=== PATIENT | male | born 1950 | race Caucasian/White ===

== ENCOUNTER 2018-03-03 08:15 | Outpatient (RCR) | payer MEDICARE, OTHER, SELFPAY ==
--- NOTE | 2018-01-15 13:34 | PT.OIE ---
Current Diagnoses Pain in right knee (01/14/18) Pain in left knee (01/14/18) Past Surgical History History of tonsillectomy Status post appendectomy Provider Visit Care Team Role Provider Type Phi Carroll MD Family Provider Physician Primary Care Provider Specialty: Family Practice Address: [address] [place] [address], [id number] Email: NAYELI Interiano Attending Provider Non-Staff Specialty: Medical Address: [address] [place] [address], [id number] Email: Physical Therapy Initial Evaluation PT-OP-A Visit Information Start: 01/14/18 08:06 Freq: Status: Active Protocol: Document 01/14/18 08:07 EA (Rec: 01/14/18 08:16 EA [id number]) Out-Patient Physical Therapy Visit Information Visit Information Visit Type Initial Evaluation Visit Start Time 07:35 Visit Stop Time 08:10 Total Visit Minutes 35 Visit Number 1 Evaluation Information Evaluation Date 01/14/18 PT-OP-B Current Condition Start: 01/14/18 08:06 Freq: Status: Active Protocol: Document 01/14/18 08:07 EA (Rec: 01/14/18 08:16 EA [id number]) Current Condition History of Current Condition Onset Date 6 months ago Current Complaints Both knee pain L>R History of Current Condition Presenting chronic knee pain with history knee twisting injury while playing golf 10 years ago with no major tear. Pain is minimal throughout 10 years and started to aggravated this last summer after playing golf. No diagnostic imaging taken recently. Prior Treatments and Tests 6 wks ago: Stem Cell treatment to both knees 3 wks platelets knee treatment and last would be tomorrow from today's date. Future Testing and Treatments Planned 01/15/18: Platelets knee treatment to both knees. Treatment Goals Patient/Caregiver Goals I want my knees to strengthen again to prevent further knee pain. Prior Functional Status Baseline Function- ADL's Independent Baseline Function- Mobility Independent Baseline Function- Recreation/Hobbies No limitation golf activities due to pain after the game. Current Functional Impairments (Reported) Functional Limitations- ADL's Independent Functional Limitations- Mobility/Gait Indep with no AD with unlimited distance Functional Limitations- Recreation/ Limited golf activity (swing Hobbies phase) due to increase in knee pain Personal Factors Other Personal Factors That May Effect Chronicity of the condition Therapy/Recovery PT-OP-C Subjective Start: 01/14/18 08:06 Freq: Status: Active Protocol: Document 01/14/18 08:16 EA (Rec: 01/14/18 13:35 EA [id number]) OP-PT Subjective Patient Comments Patient Comments Patient wants to eliminate pain to both knee and be able to perform golf activities without increase in symptoms. Patient also wants to strengthen both knee to prevent knee deterioration Patient Reported Progress Improving Patient Questionnaires Lower Extremity Functional Scale LEFS Score 62 LEFS Impairment 20 to 39% Impaired (Score 48- 62) OP-PT Pain Assessment Location Bilateral Anterior Knee Scale Used Numeric (1 - 10) Description Aching Dull Frequency Intermittent Pain Aggravating Factors Activity Walking Bending Pain Alleviating Factors Inactivity Patient Stated Pain Goal 0 Home Pain Medication Use Pain Medications Used No Pain Behaviors Pain Behaviors Wincing Comments Pain Comments Intermittent pain that frequently increase with stairs. PT-OP-F Manual Assessment Start: 01/14/18 08:06 Freq: Status: Active Protocol: Document 01/14/18 08:16 EA (Rec: 01/14/18 13:35 EA [id number]) Manual Assessments Soft Tissue Assessment Soft Tissue Mobility Assessment Tight bilateral quads. Joint Mobility Assessment Joint Mobility Assessment Hypo mobility toward medial glide of left patella Other Manual Assessments Other Manual Assessments Crepitus noted to both knees PT-OP-G Mobility & Gait Start: 01/14/18 08:06 Freq: Status: Active Protocol: Document 01/14/18 08:16 EA (Rec: 01/14/18 13:35 EA [id number]) OP Gait Assessment Gait Gait Assistance Required: Independent Able to Maintain Weight Bearing Status Yes During Gait Assistive Devices Assistive Device None Gait Deviations General Gait Pattern Antalgic Factors Limiting Gait Function Factors Limiting Gait Function Pain PT-OP-J Posture/Palpation/Skin Start: 01/14/18 08:06 Freq: Status: Active Protocol: Document 01/14/18 08:16 EA (Rec: 01/14/18 13:35 EA [id number]) Posture Evaluation Position Standing Knee Posture (R) Ext. Tibial Torsion Patellar Posture (L) Laterally Tilted PT-OP-K Range of Motion Start: 01/14/18 08:06 Freq: Status: Active Protocol: Document 01/14/18 08:16 EA (Rec: 01/14/18 13:35 EA [id number]) Knee Goniometric Range of Motion Knee Measured in Degrees Right Knee ROM WFL Yes Left Knee ROM WFL Yes PT-OP-L Special Tests Start: 01/14/18 08:06 Freq: Status: Active Protocol: Document 01/14/18 08:16 EA (Rec: 01/14/18 13:35 EA [id number]) Special Tests Knee Special Tests Apley's Compression Test Results Neg Eliseo's Sign Test Results Both + Melissa's Test Test Results + Negin's Test Test Results both tight PT-OP-M Strength Start: 01/14/18 08:06 Freq: Status: Active Protocol: Document 01/14/18 08:16 EA (Rec: 01/14/18 13:35 EA [id number]) Knee Strength Knee Manual Muscle Testing Right Flexion (S2) 5 Normal Extension (L3) 5 Normal Left Flexion (S2) 4 Good Extension (L3) 4 Good PT-OP-Q Treatments Start: 01/14/18 08:06 Freq: Status: Active Protocol: Document 01/14/18 08:16 EA (Rec: 01/14/18 13:36 EA [id number]) Self-Care/Home Management Treatment Education Patient Education Home Exercise Program Joint Protection Pain Management PT-OP-T Assessment and Plan Start: 01/14/18 08:06 Freq: Status: Active Protocol: Document 01/14/18 08:16 EA (Rec: 01/14/18 08:17 EA [id number]) Physical Therapy Assessment Rehab Potential Rehabilitation Potential Good Evaluation Complexity Number of Personal Factors/Comorbidities 0 Number of Body Systems Impaired 1-2 Clinical Presentation at Evaluation Stable Impairments Impairments Gait Pain Soft Tissue Mobility Strength Other Concerns Barriers to Rehabilitation Chronicity of the condition Goals Three Impairment Stairs descent difficulty Mascara Molder Goal (LTG) Patient will have no difficulty in descending to 8 stairs LTG Duration 4 wks One Impairment Bilateral quads tightness Mascara Molder Goal (LTG) Patient paul have full excursion both quads in prone position to improve patellar tracking LTG Duration 4 wks Two Impairment LEFS score of 68/80 Mascara Molder Goal (LTG) Patient will have LEFS score of 73 LTG Duration 4 wks Assessment Summary Assessment Pleasant 67 y/o M patient presented today with full squat and stair difficulty due to anterior knee pain. Palpation and tests reveals consistent with patellofemoral joint pain. Ocular inspection reveals left patella is laterally position in standing , dissue atrophy of quads and right foot increase toe out. No noted any signs of acute inflammation. Due to above issues, patient have difficulty performing sports he like which is golfing and as well deep stairs navigation . In my professional opinion, patient would benefit with skilled PT to improve patellar tracking and as well decrease knee symptoms. Physical Therapy Plan Frequency and Duration Frequency of Treatment 2x/Week Duration of Treatment 8 wks Plan of Care Start Date 01/14/18 Plan of Care End Date 03/11/18 Therapeutic Interventions Therapeutic Interventions Gait Training Home Exercise Program Joint Mobilizations Manual Therapy Patient/Caregiver Education Self-Care/Home Management Soft Tissue Mobilization Therapeutic Activities Therapeutic Exercises Modalities Cold Pack/Ice Massage Electric Stimulation Ultrasound Next Visit Focus/Plan Next Note Type Treatment Note Next Visit Plan HEP
--- NOTE | 2018-01-15 13:34 | PT.OPPOC ---
Current Diagnoses Pain in right knee (01/14/18) Pain in left knee (01/14/18) Provider Visit Care Team Role Provider Type Phi Carroll MD Family Provider Physician Primary Care Provider Specialty: Family Practice Address: [address] [place] [address], [phone] Email: NAYELI Interiano Attending Provider Non-Staff Specialty: Medical Address: [address] [place] [address], [address] Email: Plan Of Care PT-OP-T Assessment and Plan Start: 01/14/18 08:06 Freq: Status: Active Protocol: Document 01/14/18 08:16 RUDI (Rec: 01/14/18 08:17 RUDI [id number]) Physical Therapy Assessment Rehab Potential Rehabilitation Potential Good Evaluation Complexity Number of Personal Factors/Comorbidities 0 Number of Body Systems Impaired 1-2 Clinical Presentation at Evaluation Stable Impairments Impairments Gait Pain Soft Tissue Mobility Strength Other Concerns Barriers to Rehabilitation Chronicity of the condition Goals Three Impairment Stairs descent difficulty Fpc Goal (LTG) Patient will have no difficulty in descending to 8 stairs LTG Duration 4 wks One Impairment Bilateral quads tightness Medical Physics Professor Goal (LTG) Patient will have full excursion both quads in prone position to improve patellar tracking LTG Duration 4 wks Two Impairment LEFS score of 68/80 Fpc Goal (LTG) Patient will have LEFS score of 73 LTG Duration 4 wks Assessment Summary Assessment Pleasant 67 y/o M patient presented today with full squat and stair difficulty due to anterior knee pain. Palpation and tests reveals consistent with patellofemoral joint pain. Ocular inspection reveals left patella is laterally position in standing , disuse atrophy of quads and right foot increase toe out. No noted any signs of acute inflammation. Due to above issues, patient have difficulty performing sports he like which is golfing and as well deep stairs navigation . In my professional opinion, patient would benefit with skilled PT to improve patellar tracking and as well decrease knee symptoms. Physical Therapy Plan Frequency and Duration Frequency of Treatment 2x/Week Duration of Treatment 8 wks Plan of Care Start Date 01/14/18 Plan of Care End Date 03/11/18 Therapeutic Interventions Therapeutic Interventions Gait Training Home Exercise Program Joint Mobilizations Manual Therapy Patient/Caregiver Education Self-Care/Home Management Soft Tissue Mobilization Therapeutic Activities Therapeutic Exercises Modalities Cold Pack/Ice Massage Electric Stimulation Ultrasound Next Visit Focus/Plan Next Note Type Treatment Note Next Visit Plan HEP Plan of Care Dates Plan of Care Start Date 01/14/18 Plan of Care End Date 03/11/18 Please Sign and Return: I have reviewed this Plan of Care and certify that the skilled therapy services above are required to meet the patient?s needs. Physician Signature Date Printed Name and Credentials Clinical Instructor Signature Printed Name and Credentials
--- NOTE | 2018-01-16 12:11 | PT.OTN ---
Current Diagnoses Pain in right knee (01/16/18) Pain in left knee (01/16/18) Physical Therapy Treatment Note PT-OP-A Visit Information Start: 01/14/18 08:06 Freq: Status: Active Protocol: Document 01/16/18 07:29 EA (Rec: 01/16/18 08:14 EA [id number]) Out-Patient Physical Therapy Visit Information Visit Information Visit Type Treatment Note Visit Start Time 07:30 Visit Stop Time 08:15 Total Visit Minutes 45 Visit Number 2 PT-OP-B Current Condition Start: 01/14/18 08:06 Freq: Status: Active Protocol: Document 01/14/18 08:07 EA (Rec: 01/14/18 08:16 EA [id number]) Current Condition History of Current Condition Onset Date 6 months ago Current Complaints Both knee pain L>R History of Current Condition Presenting chronic knee pain with history knee twisting injury while playing golf 10 years ago with no major tear. Pain is minimal throughout 10 years and started to aggravated this last summer after playing golf. No diagnostic imaging taken recently. Prior Treatments and Tests 6 wks ago: Stem Cell treatment to both knees 3 wks platelets knee treatment and last would be tomorrow from today's date. Future Testing and Treatments Planned 01/15/18: Platelets knee treatment to both knees. Treatment Goals Patient/Caregiver Goals I wnat my knees to strengthen again to prevent further knee pain. Prior Functional Status Baseline Function- ADL's Independent Baseline Function- Mobility Independent Baseline Function- Recreation/Hobbies No limitation golf activities due to pain after the game. Current Functional Impairments (Reported) Functional Limitations- ADL's Indepedent Functional Limitations- Mobility/Gait Indep with no AD with unlimited distance Functional Limitations- Recreation/ Limited golf activity (swing Hobbies phase) due to increase in knee pain Personal Factors Other Personal Factors That May Effect Chronicity of the condition Therapy/Recovery PT-OP-C Subjective Start: 01/14/18 08:06 Freq: Status: Active Protocol: Document 01/16/18 07:29 EA (Rec: 01/16/18 08:14 EA [id number]) OP-PT Subjective Patient Comments Patient Comments Pt reports he is planning to get back to yoga exercises. PT-OP-F Manual Assessment Start: 01/14/18 08:06 Freq: Status: Active Protocol: Document 01/14/18 08:16 EA (Rec: 01/14/18 13:35 EA [id number]) Manual Assessments Soft Tissue Assessment Soft Tissue Mobility Assessment Tight bilaterl quads. Joint Mobility Assessment Joint Mobility Assessment Hypo mobility toward medial glide of left patella Other Manual Assessments Other Manual Assessments Crepitus noted to both knees PT-OP-G Mobility & Gait Start: 01/14/18 08:06 Freq: Status: Active Protocol: Document 01/14/18 08:16 EA (Rec: 01/14/18 13:35 EA [id number]) OP Gait Assessment Gait Gait Assistance Required: Independent Able to Maintain Weight Bearing Status Yes During Gait Assistive Devices Assistive Device None Gait Deviations General Gait Pattern Antalgic Factors Limiting Gait Function Factors Limiting Gait Function Pain PT-OP-J Posture/Palpation/Skin Start: 01/14/18 08:06 Freq: Status: Active Protocol: Document 01/14/18 08:16 EA (Rec: 01/14/18 13:35 EA [id number]) Posture Evaluation Position Standing Knee Posture (R) Ext. Tibial Torsion Patellar Posture (L) Laterally Tilted PT-OP-K Range of Motion Start: 01/14/18 08:06 Freq: Status: Active Protocol: Document 01/14/18 08:16 EA (Rec: 01/14/18 13:35 EA [id number]) Knee Goniometric Range of Motion Knee Measured in Degrees Right Knee ROM WFL Yes Left Knee ROM WFL Yes PT-OP-L Special Tests Start: 01/14/18 08:06 Freq: Status: Active Protocol: Document 01/14/18 08:16 EA (Rec: 01/14/18 13:35 EA [id number]) Special Tests Knee Special Tests Apley's Compression Test Results Neg Eliseo's Sign Test Results Both + Melissa's Test Test Results + Negin's Test Test Results both tight PT-OP-M Strength Start: 01/14/18 08:06 Freq: Status: Active Protocol: Document 01/14/18 08:16 EA (Rec: 01/14/18 13:35 EA [id number]) Knee Strength Knee Manual Muscle Testing Right Flexion (S2) 5 Normal Extension (L3) 5 Normal Left Flexion (S2) 4 Good Extension (L3) 4 Good PT-OP-Q Treatments Start: 01/14/18 08:06 Freq: Status: Active Protocol: Document 01/16/18 07:29 EA (Rec: 01/16/18 08:14 EA [id number]) Cardio Equipment Recumbent Stepper (Sci-Fit) Duration (Minutes) 7 Resistance 2 Gym Equipment Cable Column (Body Solid) Leg Extension Resistance 2 plates Reps/Time x 12-15 reps x 2 Shuttle Recovery Bilateral Squats Resistance 2-4bands Shuttle Recovery Platform Stable Reps/Time x15 reps x 2 Therapeutic Exercises Supine Exercises 1 Supine Exercise Name 90-90 Reps/Minutes x30SH x 2 reps Sidelying Exercises 1 Sidelying Exercise Name ITB stertc on EOB Side bilateral Reps/Minutes x15SH x 2 Sitting Exercises 1 Sitting Exercise Name wall squat Reps/Minutes x12 reps x 2 Standing Exercises 3 Standing Exercise Name quads stretch Side bilateral Reps/Minutes x15SH x 2 reps 2 Standing Exercise Name // bars steady lunges Reps/Minutes x10 reps x 2 sets each leg 1 Standing Exercise Name wall squats Reps/Minutes x10 reps x 2 sets Manual Therapy Treatment Joint Mobilizations 1 Joint PF Direction medial Grade II Body Position Supine Self-Care/Home Management Treatment Education Patient Education Home Exercise Program Other Education explained and educated with HEP that was provided PT-OP-R Modalities Start: 01/14/18 08:06 Freq: Status: Active Protocol: Document 01/16/18 07:29 EA (Rec: 01/16/18 08:14 EA [id number]) Hot Pack/Cold Pack Treatment Hot Pack Location both knees Patient Position Hooklying Treatment Duration (minutes) 15 Patient Tolerance Good PT-OP-T Assessment and Plan Start: 01/14/18 08:06 Freq: Status: Active Protocol: Document 01/16/18 07:29 EA (Rec: 01/16/18 08:14 EA [id number]) Physical Therapy Assessment Assessment Summary Assessment Tolerated treatment well Physical Therapy Plan Next Visit Focus/Plan Next Note Type Treatment Note Next Visit Plan Cont with current plan. Review HEP
--- NOTE | 2018-01-20 10:08 | PT.OTN ---
Current Diagnoses Pain in right knee (01/20/18) Pain in left knee (01/20/18) Physical Therapy Treatment Note PT-OP-A Visit Information Start: 01/14/18 08:06 Freq: Status: Active Protocol: Document 01/20/18 08:20 EA (Rec: 01/20/18 09:02 EA [id number]) Out-Patient Physical Therapy Visit Information Visit Information Visit Type Treatment Note Visit Start Time 08:15 Visit Stop Time 09:05 Total Visit Minutes 50 Visit Number 3 PT-OP-B Current Condition Start: 01/14/18 08:06 Freq: Status: Active Protocol: Document 01/14/18 08:07 EA (Rec: 01/14/18 08:16 EA [id number]) Current Condition History of Current Condition Onset Date 6 months ago Current Complaints Both knee pain L>R History of Current Condition Presenting chronic knee pain with history knee twisting injury while playing golf 10 years ago with no major tear. Pain is minimal throughout 10 years and started to aggravated this last summer after playing golf. No diagnostic imaging taken recently. Prior Treatments and Tests 6 wks ago: Stem Cell treatment to both knees 3 wks platelets knee treatment and last would be tomorrow from today's date. Future Testing and Treatments Planned 01/15/18: Platelets knee treatment to both knees. Treatment Goals Patient/Caregiver Goals I wnat my knees to strengthen again to prevent further knee pain. Prior Functional Status Baseline Function- ADL's Independent Baseline Function- Mobility Independent Baseline Function- Recreation/Hobbies No limitation golf activities due to pain after the game. Current Functional Impairments (Reported) Functional Limitations- ADL's Indepedent Functional Limitations- Mobility/Gait Indep with no AD with unlimited distance Functional Limitations- Recreation/ Limited golf activity (swing Hobbies phase) due to increase in knee pain Personal Factors Other Personal Factors That May Effect Chronicity of the condition Therapy/Recovery PT-OP-C Subjective Start: 01/14/18 08:06 Freq: Status: Active Protocol: Document 01/20/18 08:20 EA (Rec: 01/20/18 09:02 EA [id number]) OP-PT Subjective Patient Comments Patient Comments Patient reports forgot to perform HEP; states low back is quite sore after last session. PT-OP-F Manual Assessment Start: 01/14/18 08:06 Freq: Status: Active Protocol: Document 01/14/18 08:16 EA (Rec: 01/14/18 13:35 EA [id number]) Manual Assessments Soft Tissue Assessment Soft Tissue Mobility Assessment Tight bilaterl quads. Joint Mobility Assessment Joint Mobility Assessment Hypo mobility toward medial glide of left patella Other Manual Assessments Other Manual Assessments Crepitus noted to both knees PT-OP-G Mobility & Gait Start: 01/14/18 08:06 Freq: Status: Active Protocol: Document 01/14/18 08:16 EA (Rec: 01/14/18 13:35 EA [id number]) OP Gait Assessment Gait Gait Assistance Required: Independent Able to Maintain Weight Bearing Status Yes During Gait Assistive Devices Assistive Device None Gait Deviations General Gait Pattern Antalgic Factors Limiting Gait Function Factors Limiting Gait Function Pain PT-OP-J Posture/Palpation/Skin Start: 01/14/18 08:06 Freq: Status: Active Protocol: Document 01/14/18 08:16 EA (Rec: 01/14/18 13:35 EA [id number]) Posture Evaluation Position Standing Knee Posture (R) Ext. Tibial Torsion Patellar Posture (L) Laterally Tilted PT-OP-K Range of Motion Start: 01/14/18 08:06 Freq: Status: Active Protocol: Document 01/14/18 08:16 EA (Rec: 01/14/18 13:35 EA [id number]) Knee Goniometric Range of Motion Knee Measured in Degrees Right Knee ROM WFL Yes Left Knee ROM WFL Yes PT-OP-L Special Tests Start: 01/14/18 08:06 Freq: Status: Active Protocol: Document 01/14/18 08:16 EA (Rec: 01/14/18 13:35 EA [id number]) Special Tests Knee Special Tests Apley's Compression Test Results Neg Eliseo's Sign Test Results Both + Melissa's Test Test Results + Negin's Test Test Results both tight PT-OP-M Strength Start: 01/14/18 08:06 Freq: Status: Active Protocol: Document 01/14/18 08:16 EA (Rec: 01/14/18 13:35 EA [id number]) Knee Strength Knee Manual Muscle Testing Right Flexion (S2) 5 Normal Extension (L3) 5 Normal Left Flexion (S2) 4 Good Extension (L3) 4 Good PT-OP-Q Treatments Start: 01/14/18 08:06 Freq: Status: Active Protocol: Document 01/20/18 08:20 EA (Rec: 01/20/18 09:02 EA [id number]) Cardio Equipment Recumbent Stepper (Sci-Fit) Duration (Minutes) 5 Resistance 2 Gym Equipment Cable Column (Body Solid) Leg Extension Resistance 2 plates Reps/Time x 12-15 reps x 2 Shuttle Recovery Bilateral Squats Resistance 2-4bands Shuttle Recovery Platform Stable Reps/Time x15 reps x 2 Therapeutic Exercises Supine Exercises 1 Supine Exercise Name 90-90 Reps/Minutes x30SH x 2 reps Sidelying Exercises 1 Sidelying Exercise Name ITB stertc on EOB Side bilateral Reps/Minutes x15SH x 2 Standing Exercises 3 Standing Exercise Name quads stretch: prone and supine Side bilateral Reps/Minutes x15SH x 2 reps 2 Standing Exercise Name // bars steady lunges Reps/Minutes x10 reps x 2 sets each leg 1 Standing Exercise Name wall squats Reps/Minutes x10 reps x 2 sets Manual Therapy Treatment Joint Mobilizations 1 Joint PF Direction medial Grade II Body Position Supine PT-OP-R Modalities Start: 01/14/18 08:06 Freq: Status: Active Protocol: Document 01/20/18 08:20 EA (Rec: 01/20/18 09:02 EA [id number]) Electric Stimulation Electric Stimulation Interferential Current (IFC) Body Location left quads Duration (Minutes) 15 Patient Position Hooklying Combined With Heat/Cold Hot Pack Hot Pack/Cold Pack Treatment Hot Pack Location both knees Patient Position Hooklying Treatment Duration (minutes) 15 Patient Tolerance Good PT-OP-T Assessment and Plan Start: 01/14/18 08:06 Freq: Status: Active Protocol: Document 01/20/18 08:20 EA (Rec: 01/20/18 09:02 EA [id number]) Physical Therapy Assessment Assessment Summary Assessment Patient tolerated treatment well. Able to engage TA's during standing exercises. In addition to patello femoral pain, tender to touch at left lateral distal quads which possible with tendinitis.
--- NOTE | 2018-01-22 12:22 | PT.OTN ---
Current Diagnoses Pain in right knee (01/22/18) Pain in left knee (01/22/18) Physical Therapy Treatment Note PT-OP-A Visit Information Start: 01/14/18 08:06 Freq: Status: Active Protocol: Document 01/22/18 07:40 EA (Rec: 01/22/18 08:15 EA [id number]) Out-Patient Physical Therapy Visit Information Visit Information Visit Type Treatment Note Visit Start Time 07:30 Visit Stop Time 08:20 Total Visit Minutes 50 Visit Number 4 PT-OP-B Current Condition Start: 01/14/18 08:06 Freq: Status: Active Protocol: Document 01/14/18 08:07 EA (Rec: 01/14/18 08:16 EA [id number]) Current Condition History of Current Condition Onset Date 6 months ago Current Complaints Both knee pain L>R History of Current Condition Presenting chronic knee pain with history knee twisting injury while playing golf 10 years ago with no major tear. Pain is minimal throughout 10 years and started to aggravated this last summer after playing golf. No diagnostic imaging taken recently. Prior Treatments and Tests 6 wks ago: Stem Cell treatment to both knees 3 wks platelets knee treatment and last would be tomorrow from today's date. Future Testing and Treatments Planned 01/15/18: Platelets knee treatment to both knees. Treatment Goals Patient/Caregiver Goals I wnat my knees to strengthen again to prevent further knee pain. Prior Functional Status Baseline Function- ADL's Independent Baseline Function- Mobility Independent Baseline Function- Recreation/Hobbies No limitation golf activities due to pain after the game. Current Functional Impairments (Reported) Functional Limitations- ADL's Indepedent Functional Limitations- Mobility/Gait Indep with no AD with unlimited distance Functional Limitations- Recreation/ Limited golf activity (swing Hobbies phase) due to increase in knee pain Personal Factors Other Personal Factors That May Effect Chronicity of the condition Therapy/Recovery PT-OP-C Subjective Start: 01/14/18 08:06 Freq: Status: Active Protocol: Document 01/22/18 07:40 EA (Rec: 01/22/18 08:15 EA [id number]) OP-PT Subjective Patient Comments Patient Comments Pt reports able to perform HEP ; no increased of symptoms. PT-OP-F Manual Assessment Start: 01/14/18 08:06 Freq: Status: Active Protocol: Document 01/14/18 08:16 EA (Rec: 01/14/18 13:35 EA [id number]) Manual Assessments Soft Tissue Assessment Soft Tissue Mobility Assessment Tight bilaterl quads. Joint Mobility Assessment Joint Mobility Assessment Hypo mobility toward medial glide of left patella Other Manual Assessments Other Manual Assessments Crepitus noted to both knees PT-OP-G Mobility & Gait Start: 01/14/18 08:06 Freq: Status: Active Protocol: Document 01/14/18 08:16 EA (Rec: 01/14/18 13:35 EA [id number]) OP Gait Assessment Gait Gait Assistance Required: Independent Able to Maintain Weight Bearing Status Yes During Gait Assistive Devices Assistive Device None Gait Deviations General Gait Pattern Antalgic Factors Limiting Gait Function Factors Limiting Gait Function Pain PT-OP-J Posture/Palpation/Skin Start: 01/14/18 08:06 Freq: Status: Active Protocol: Document 01/14/18 08:16 EA (Rec: 01/14/18 13:35 EA [id number]) Posture Evaluation Position Standing Knee Posture (R) Ext. Tibial Torsion Patellar Posture (L) Laterally Tilted PT-OP-K Range of Motion Start: 01/14/18 08:06 Freq: Status: Active Protocol: Document 01/14/18 08:16 EA (Rec: 01/14/18 13:35 EA [id number]) Knee Goniometric Range of Motion Knee Measured in Degrees Right Knee ROM WFL Yes Left Knee ROM WFL Yes PT-OP-L Special Tests Start: 01/14/18 08:06 Freq: Status: Active Protocol: Document 01/14/18 08:16 EA (Rec: 01/14/18 13:35 EA [id number]) Special Tests Knee Special Tests Apley's Compression Test Results Neg Eliseo's Sign Test Results Both + Melissa's Test Test Results + Negin's Test Test Results both tight PT-OP-M Strength Start: 01/14/18 08:06 Freq: Status: Active Protocol: Document 01/14/18 08:16 EA (Rec: 01/14/18 13:35 EA [id number]) Knee Strength Knee Manual Muscle Testing Right Flexion (S2) 5 Normal Extension (L3) 5 Normal Left Flexion (S2) 4 Good Extension (L3) 4 Good PT-OP-Q Treatments Start: 01/14/18 08:06 Freq: Status: Active Protocol: Document 01/22/18 07:40 EA (Rec: 01/22/18 08:15 EA [id number]) Cardio Equipment Recumbent Stepper (Sci-Fit) Duration (Minutes) 5 Resistance 2 Gym Equipment Cable Column (Body Solid) Leg Extension Resistance 2 -5plates Reps/Time x 12-15 reps x 2 Shuttle Recovery Unilateral Squats Resistance 3 plates Reps/Time x 12 reps Bilateral Squats Resistance 2-4bands Shuttle Recovery Platform Stable Reps/Time x15 reps x 2 Therapeutic Exercises Supine Exercises 1 Supine Exercise Name 90-90 Reps/Minutes x30SH x 2 reps Sidelying Exercises 1 Sidelying Exercise Name ITB stertc on EOB Side bilateral Reps/Minutes x15SH x 2 Standing Exercises 3 Standing Exercise Name quads stretch: prone and supine Side bilateral Reps/Minutes x15SH x 2 reps 2 Standing Exercise Name // bars steady lunges Reps/Minutes x10 reps x 2 sets each leg 1 Standing Exercise Name wall squats Reps/Minutes x10 reps x 2 sets PT-OP-R Modalities Start: 01/14/18 08:06 Freq: Status: Active Protocol: Document 01/22/18 07:40 EA (Rec: 01/22/18 08:15 EA [id number]) Electric Stimulation Electric Stimulation Interferential Current (IFC) Body Location left quads Duration (Minutes) 15 Patient Position Hooklying Combined With Heat/Cold Hot Pack Hot Pack/Cold Pack Treatment Hot Pack Location both knees Patient Position Hooklying Treatment Duration (minutes) 15 Patient Tolerance Good PT-OP-T Assessment and Plan Start: 01/14/18 08:06 Freq: Status: Active Protocol: Document 01/22/18 07:40 EA (Rec: 01/22/18 08:15 EA [id number]) Physical Therapy Assessment Assessment Summary Assessment Tolerated treatment well. Physical Therapy Plan Next Visit Focus/Plan Next Note Type Treatment Note Next Visit Plan Cont with current plan.
--- NOTE | 2018-01-24 09:45 | PT.OTN ---
Current Diagnoses Pain in right knee (01/24/18) Pain in left knee (01/24/18) Physical Therapy Treatment Note PT-OP-A Visit Information Start: 01/14/18 08:06 Freq: Status: Active Protocol: Document 01/24/18 09:45 RCC (Rec: 01/24/18 13:39 RCC [id number]) Out-Patient Physical Therapy Visit Information Visit Information Visit Type Treatment Note Visit Start Time 09:00 Visit Stop Time 09:55 Total Visit Minutes 55 Visit Number 5 Number of FIBER WORKER Visits 0 PT-OP-B Current Condition Start: 01/14/18 08:06 Freq: Status: Active Protocol: Document 01/14/18 08:07 EA (Rec: 01/14/18 08:16 EA [id number]) Current Condition History of Current Condition Onset Date 6 months ago Current Complaints Both knee pain L>R History of Current Condition Presenting chronic knee pain with history knee twisting injury while playing golf 10 years ago with no major tear. Pain is minimal throughout 10 years and started to aggravated this last summer after playing golf. No diagnostic imaging taken recently. Prior Treatments and Tests 6 wks ago: Stem Cell treatment to both knees 3 wks platelets knee treatment and last would be tomorrow from today's date. Future Testing and Treatments Planned 01/15/18: Platelets knee treatment to both knees. Treatment Goals Patient/Caregiver Goals I wnat my knees to strengthen again to prevent further knee pain. Prior Functional Status Baseline Function- ADL's Independent Baseline Function- Mobility Independent Baseline Function- Recreation/Hobbies No limitation golf activities due to pain after the game. Current Functional Impairments (Reported) Functional Limitations- ADL's Indepedent Functional Limitations- Mobility/Gait Indep with no AD with unlimited distance Functional Limitations- Recreation/ Limited golf activity (swing Hobbies phase) due to increase in knee pain Personal Factors Other Personal Factors That May Effect Chronicity of the condition Therapy/Recovery PT-OP-C Subjective Start: 01/14/18 08:06 Freq: Status: Active Protocol: Document 01/24/18 09:45 RCC (Rec: 01/24/18 13:39 RCC [id number]) OP-PT Subjective Patient Comments Patient Comments Pt denies pain at this point, states that his legs still feel weak occasionally. PT-OP-F Manual Assessment Start: 01/14/18 08:06 Freq: Status: Active Protocol: Document 01/24/18 09:45 RCC (Rec: 01/24/18 13:39 RCC [id number]) Manual Assessments Joint Mobility Assessment Joint Mobility Assessment hypomobile L patella with medial glide PT-OP-G Mobility & Gait Start: 01/14/18 08:06 Freq: Status: Active Protocol: Document 01/14/18 08:16 EA (Rec: 01/14/18 13:35 EA [id number]) OP Gait Assessment Gait Gait Assistance Required: Independent Able to Maintain Weight Bearing Status Yes During Gait Assistive Devices Assistive Device None Gait Deviations General Gait Pattern Antalgic Factors Limiting Gait Function Factors Limiting Gait Function Pain PT-OP-J Posture/Palpation/Skin Start: 01/14/18 08:06 Freq: Status: Active Protocol: Document 01/14/18 08:16 EA (Rec: 01/14/18 13:35 EA [id number]) Posture Evaluation Position Standing Knee Posture (R) Ext. Tibial Torsion Patellar Posture (L) Laterally Tilted PT-OP-K Range of Motion Start: 01/14/18 08:06 Freq: Status: Active Protocol: Document 01/14/18 08:16 EA (Rec: 01/14/18 13:35 EA [id number]) Knee Goniometric Range of Motion Knee Measured in Degrees Right Knee ROM WFL Yes Left Knee ROM WFL Yes PT-OP-L Special Tests Start: 01/14/18 08:06 Freq: Status: Active Protocol: Document 01/14/18 08:16 EA (Rec: 01/14/18 13:35 EA [id number]) Special Tests Knee Special Tests Apley's Compression Test Results Neg Eliseo's Sign Test Results Both + Melissa's Test Test Results + Negin's Test Test Results both tight PT-OP-M Strength Start: 01/14/18 08:06 Freq: Status: Active Protocol: Document 01/14/18 08:16 EA (Rec: 01/14/18 13:35 EA [id number]) Knee Strength Knee Manual Muscle Testing Right Flexion (S2) 5 Normal Extension (L3) 5 Normal Left Flexion (S2) 4 Good Extension (L3) 4 Good PT-OP-Q Treatments Start: 01/14/18 08:06 Freq: Status: Active Protocol: Document 01/24/18 09:45 RCC (Rec: 01/24/18 13:39 RCC [email or web address]) Cardio Equipment Recumbent Stepper (Sci-Fit) Duration (Minutes) 6 Resistance 2 Gym Equipment Cable Column (Body Solid) Leg Curl Resistance 5 plates Reps/Time 10x2 Leg Extension Resistance 5 plates Reps/Time 12x2 Shuttle Recovery Unilateral Squats Resistance 3 plates Reps/Time x 12 reps Bilateral Squats Resistance 4bands Shuttle Recovery Platform Stable Reps/Time x10 reps x 2 Therapeutic Exercises Standing Exercises 4 Standing Exercise Name 4 way hip Side bilateral Resistance L2 band Reps/Minutes 10 each Comments hip flex, ext, abd, adduction 2 Standing Exercise Name // bars steady lunges Reps/Minutes x10 reps x 2 sets each leg Manual Therapy Treatment Joint Mobilizations 1 Joint PF (left) Direction medial Grade III Body Position Supine PT-OP-R Modalities Start: 01/14/18 08:06 Freq: Status: Active Protocol: Document 01/24/18 09:45 RCC (Rec: 01/24/18 13:39 [facility] [id number]) Electric Stimulation Electric Stimulation Pre-Modulated Body Location B knees Duration (Minutes) 15 Combined With Heat/Cold Hot Pack Hot Pack/Cold Pack Treatment Hot Pack Location both knees Patient Position Hooklying Treatment Duration (minutes) 15 Patient Tolerance Good PT-OP-T Assessment and Plan Start: 01/14/18 08:06 Freq: Status: Active Protocol: Document 01/24/18 09:45 RCC (Rec: 01/24/18 13:39 [facility] [id number]) Physical Therapy Assessment Assessment Summary Assessment Pt requires occasional cuing to prevent excessive lumbar lordosis with standing activities. L patella hypomobile with medial glide. Physical Therapy Plan Frequency and Duration Frequency of Treatment 2x/Week Duration of Treatment 8 wks Plan of Care Start Date 01/14/18 Plan of Care End Date 03/11/18 Next Visit Focus/Plan Next Note Type Treatment Note Next Visit Plan progress quad and HS strength, core initiation with standing activities.
--- NOTE | 2018-01-27 12:13 | PT.OTN ---
Current Diagnoses Pain in right knee (01/27/18) Pain in left knee (01/27/18) Physical Therapy Treatment Note PT-OP-A Visit Information Start: 01/14/18 08:06 Freq: Status: Active Protocol: Document 01/27/18 08:24 EA (Rec: 01/27/18 08:58 EA [id number]) Out-Patient Physical Therapy Visit Information Visit Information Visit Type Treatment Note Visit Start Time 08:15 Visit Stop Time 09:10 Total Visit Minutes 55 Visit Number 6 Number of PORTABLE CANTEEN OPERATOR Visits 0 PT-OP-B Current Condition Start: 01/14/18 08:06 Freq: Status: Active Protocol: Document 01/14/18 08:07 EA (Rec: 01/14/18 08:16 EA [id number]) Current Condition History of Current Condition Onset Date 6 months ago Current Complaints Both knee pain L>R History of Current Condition Presenting chronic knee pain with history knee twisting injury while playing golf 10 years ago with no major tear. Pain is minimal throughout 10 years and started to aggravated this last summer after playing golf. No diagnostic imaging taken recently. Prior Treatments and Tests 6 wks ago: Stem Cell treatment to both knees 3 wks platelets knee treatment and last would be tomorrow from today's date. Future Testing and Treatments Planned 01/15/18: Platelets knee treatment to both knees. Treatment Goals Patient/Caregiver Goals I wnat my knees to strengthen again to prevent further knee pain. Prior Functional Status Baseline Function- ADL's Independent Baseline Function- Mobility Independent Baseline Function- Recreation/Hobbies No limitation golf activities due to pain after the game. Current Functional Impairments (Reported) Functional Limitations- ADL's Indepedent Functional Limitations- Mobility/Gait Indep with no AD with unlimited distance Functional Limitations- Recreation/ Limited golf activity (swing Hobbies phase) due to increase in knee pain Personal Factors Other Personal Factors That May Effect Chronicity of the condition Therapy/Recovery PT-OP-C Subjective Start: 01/14/18 08:06 Freq: Status: Active Protocol: Document 01/27/18 08:24 EA (Rec: 01/27/18 08:58 EA [id number]) OP-PT Subjective Patient Comments Patient Comments Pt reports played gold over the weekend and no symptoms increased; states never felt that in the past 6 months. PT-OP-F Manual Assessment Start: 01/14/18 08:06 Freq: Status: Active Protocol: Document 01/24/18 09:45 RCC (Rec: 01/24/18 13:39 RCC [email or web address]) Manual Assessments Joint Mobility Assessment Joint Mobility Assessment hypomobile L patella with medial glide PT-OP-G Mobility & Gait Start: 01/14/18 08:06 Freq: Status: Active Protocol: Document 01/14/18 08:16 EA (Rec: 01/14/18 13:35 EA [id number]) OP Gait Assessment Gait Gait Assistance Required: Independent Able to Maintain Weight Bearing Status Yes During Gait Assistive Devices Assistive Device None Gait Deviations General Gait Pattern Antalgic Factors Limiting Gait Function Factors Limiting Gait Function Pain PT-OP-J Posture/Palpation/Skin Start: 01/14/18 08:06 Freq: Status: Active Protocol: Document 01/14/18 08:16 EA (Rec: 01/14/18 13:35 EA [id number]) Posture Evaluation Position Standing Knee Posture (R) Ext. Tibial Torsion Patellar Posture (L) Laterally Tilted PT-OP-K Range of Motion Start: 01/14/18 08:06 Freq: Status: Active Protocol: Document 01/14/18 08:16 EA (Rec: 01/14/18 13:35 EA [id number]) Knee Goniometric Range of Motion Knee Measured in Degrees Right Knee ROM WFL Yes Left Knee ROM WFL Yes PT-OP-L Special Tests Start: 01/14/18 08:06 Freq: Status: Active Protocol: Document 01/14/18 08:16 EA (Rec: 01/14/18 13:35 EA [id number]) Special Tests Knee Special Tests Apley's Compression Test Results Neg Eliseo's Sign Test Results Both + Melissa's Test Test Results + Negin's Test Test Results both tight PT-OP-M Strength Start: 01/14/18 08:06 Freq: Status: Active Protocol: Document 01/14/18 08:16 EA (Rec: 01/14/18 13:35 EA [id number]) Knee Strength Knee Manual Muscle Testing Right Flexion (S2) 5 Normal Extension (L3) 5 Normal Left Flexion (S2) 4 Good Extension (L3) 4 Good PT-OP-Q Treatments Start: 01/14/18 08:06 Freq: Status: Active Protocol: Document 01/27/18 08:24 EA (Rec: 01/27/18 08:58 EA [id number]) Cardio Equipment Recumbent Stepper (Sci-Fit) Duration (Minutes) 6 Resistance 2 Gym Equipment Cable Column (Body Solid) Leg Extension Resistance 4-6 plates Reps/Time 12x3 Shuttle Recovery Unilateral Squats Resistance 3 bands Reps/Time x 12 reps Bilateral Squats Resistance 6bands Shuttle Recovery Platform Stable Reps/Time x10 reps x 2 Therapeutic Exercises Supine Exercises 1 Supine Exercise Name 90-90 Reps/Minutes x30SH x 2 reps Sidelying Exercises 1 Sidelying Exercise Name ITB stretch on EOB Side bilateral Reps/Minutes x15SH x 2 Standing Exercises 3 Standing Exercise Name quads stretch: prone and supine Side bilateral Reps/Minutes x15SH x 2 reps 2 Standing Exercise Name Rails FWD lunges Reps/Minutes x10 reps x 2 sets each leg 1 Standing Exercise Name wall squats Reps/Minutes x10 reps x 2 sets PT-OP-R Modalities Start: 01/14/18 08:06 Freq: Status: Active Protocol: Document 01/27/18 08:24 EA (Rec: 01/27/18 08:58 EA [id number]) Electric Stimulation Electric Stimulation Interferential Current (IFC) Body Location left quads Duration (Minutes) 15 Patient Position Hooklying Combined With Heat/Cold Hot Pack PT-OP-T Assessment and Plan Start: 01/14/18 08:06 Freq: Status: Active Protocol: Document 01/27/18 08:24 EA (Rec: 01/27/18 08:58 EA [id number]) Physical Therapy Assessment Assessment Summary Assessment Patient is progressing well in terms of strength and exercises form & execution. Physical Therapy Plan Next Visit Focus/Plan Next Visit Plan Advance as tolerated.
--- NOTE | 2018-01-29 12:10 | PT.OTN ---
Current Diagnoses Pain in right knee (01/29/18) Pain in left knee (01/29/18) Physical Therapy Treatment Note PT-OP-A Visit Information Start: 01/14/18 08:06 Freq: Status: Active Protocol: Document 01/29/18 07:35 EA (Rec: 01/29/18 08:14 EA [id number]) Out-Patient Physical Therapy Visit Information Visit Information Visit Type Treatment Note Visit Start Time 07:30 Visit Stop Time 08:20 Total Visit Minutes 50 Visit Number 7 PT-OP-B Current Condition Start: 01/14/18 08:06 Freq: Status: Active Protocol: Document 01/14/18 08:07 EA (Rec: 01/14/18 08:16 EA [id number]) Current Condition History of Current Condition Onset Date 6 months ago Current Complaints Both knee pain L>R History of Current Condition Presenting chronic knee pain with history knee twisting injury while playing golf 10 years ago with no major tear. Pain is minimal throughout 10 years and started to aggravated this last summer after playing golf. No diagnostic imaging taken recently. Prior Treatments and Tests 6 wks ago: Stem Cell treatment to both knees 3 wks platelets knee treatment and last would be tomorrow from today's date. Future Testing and Treatments Planned 01/15/18: Platelets knee treatment to both knees. Treatment Goals Patient/Caregiver Goals I wnat my knees to strengthen again to prevent further knee pain. Prior Functional Status Baseline Function- ADL's Independent Baseline Function- Mobility Independent Baseline Function- Recreation/Hobbies No limitation golf activities due to pain after the game. Current Functional Impairments (Reported) Functional Limitations- ADL's Indepedent Functional Limitations- Mobility/Gait Indep with no AD with unlimited distance Functional Limitations- Recreation/ Limited golf activity (swing Hobbies phase) due to increase in knee pain Personal Factors Other Personal Factors That May Effect Chronicity of the condition Therapy/Recovery PT-OP-C Subjective Start: 01/14/18 08:06 Freq: Status: Active Protocol: Document 01/29/18 07:35 EA (Rec: 01/29/18 08:14 EA [id number]) OP-PT Subjective Patient Comments Patient Comments Pt reports that he was sore a day after last session; states he has been complaint with HEP. PT-OP-F Manual Assessment Start: 01/14/18 08:06 Freq: Status: Active Protocol: Document 01/24/18 09:45 RCC (Rec: 01/24/18 13:39 RCC [email or web address]) Manual Assessments Joint Mobility Assessment Joint Mobility Assessment hypomobile L patella with medial glide PT-OP-G Mobility & Gait Start: 01/14/18 08:06 Freq: Status: Active Protocol: Document 01/14/18 08:16 EA (Rec: 01/14/18 13:35 EA [id number]) OP Gait Assessment Gait Gait Assistance Required: Independent Able to Maintain Weight Bearing Status Yes During Gait Assistive Devices Assistive Device None Gait Deviations General Gait Pattern Antalgic Factors Limiting Gait Function Factors Limiting Gait Function Pain PT-OP-J Posture/Palpation/Skin Start: 01/14/18 08:06 Freq: Status: Active Protocol: Document 01/14/18 08:16 EA (Rec: 01/14/18 13:35 EA [id number]) Posture Evaluation Position Standing Knee Posture (R) Ext. Tibial Torsion Patellar Posture (L) Laterally Tilted PT-OP-K Range of Motion Start: 01/14/18 08:06 Freq: Status: Active Protocol: Document 01/14/18 08:16 EA (Rec: 01/14/18 13:35 EA [id number]) Knee Goniometric Range of Motion Knee Measured in Degrees Right Knee ROM WFL Yes Left Knee ROM WFL Yes PT-OP-L Special Tests Start: 01/14/18 08:06 Freq: Status: Active Protocol: Document 01/14/18 08:16 EA (Rec: 01/14/18 13:35 EA [id number]) Special Tests Knee Special Tests Apley's Compression Test Results Neg Eliseo's Sign Test Results Both + Melissa's Test Test Results + Negin's Test Test Results both tight PT-OP-M Strength Start: 01/14/18 08:06 Freq: Status: Active Protocol: Document 01/14/18 08:16 EA (Rec: 01/14/18 13:35 EA [id number]) Knee Strength Knee Manual Muscle Testing Right Flexion (S2) 5 Normal Extension (L3) 5 Normal Left Flexion (S2) 4 Good Extension (L3) 4 Good PT-OP-Q Treatments Start: 01/14/18 08:06 Freq: Status: Active Protocol: Document 01/29/18 07:35 EA (Rec: 01/29/18 08:14 EA [id number]) Cardio Equipment Bicycle (Upright) Duration (Minutes) 6 Resistance 5 Other 5-2 Gym Equipment Cable Column (Body Solid) Leg Extension Resistance 4-8 plates Reps/Time 12-10-8 reps Shuttle Recovery Unilateral Squats Resistance 3 bands Reps/Time x 12 reps Bilateral Squats Resistance 6-7bands Shuttle Recovery Platform Stable Reps/Time x12 reps x 3 Therapeutic Exercises Supine Exercises 1 Supine Exercise Name 90-90 Reps/Minutes x30SH x 2 reps Sidelying Exercises 1 Sidelying Exercise Name ITB stretch on EOB Side bilateral Reps/Minutes x15SH x 2 Standing Exercises 3 Standing Exercise Name quads stretch: prone and supine Side bilateral Reps/Minutes x15SH x 2 reps 2 Standing Exercise Name Rails FWD lunges Reps/Minutes x10 reps x 2 sets each leg 1 Standing Exercise Name wall squats Reps/Minutes x10 reps x 2 sets Manual Therapy Treatment Joint Mobilizations 1 Joint PF (left) Direction medial Grade III Body Position Supine PT-OP-R Modalities Start: 01/14/18 08:06 Freq: Status: Active Protocol: Document 01/29/18 07:35 EA (Rec: 01/29/18 08:14 EA [id number]) Electric Stimulation Electric Stimulation Interferential Current (IFC) Body Location left quads Duration (Minutes) 15 Patient Position Hooklying Combined With Heat/Cold Hot Pack PT-OP-T Assessment and Plan Start: 01/14/18 08:06 Freq: Status: Active Protocol: Document 01/29/18 07:35 EA (Rec: 01/29/18 08:14 EA [id number]) Physical Therapy Assessment Assessment Summary Assessment Patient has improved strength and able to facilitate therex without discomfort. Patient is progressing well. Physical Therapy Plan Next Visit Focus/Plan Next Note Type Treatment Note Next Visit Plan Advance as tolerated.
--- NOTE | 2018-01-31 09:00 | PT.OTN ---
Current Diagnoses Pain in right knee (01/31/18) Pain in left knee (01/31/18) Physical Therapy Treatment Note PT-OP-A Visit Information Start: 01/14/18 08:06 Freq: Status: Active Protocol: Document 01/31/18 08:23 [facility] (Rec: 01/31/18 08:55 [facility] [id number]) Out-Patient Physical Therapy Visit Information Visit Information Visit Type Treatment Note Visit Start Time 08:15 Visit Stop Time 09:10 Total Visit Minutes 55 Visit Number 8 PT-OP-B Current Condition Start: 01/14/18 08:06 Freq: Status: Active Protocol: Document 01/14/18 08:07 EA (Rec: 01/14/18 08:16 EA [id number]) Current Condition History of Current Condition Onset Date 6 months ago Current Complaints Both knee pain L>R History of Current Condition Presenting chronic knee pain with history knee twisting injury while playing golf 10 years ago with no major tear. Pain is minimal throughout 10 years and started to aggravated this last summer after playing golf. No diagnostic imaging taken recently. Prior Treatments and Tests 6 wks ago: Stem Cell treatment to both knees 3 wks platelets knee treatment and last would be tomorrow from today's date. Future Testing and Treatments Planned 01/15/18: Platelets knee treatment to both knees. Treatment Goals Patient/Caregiver Goals I wnat my knees to strengthen again to prevent further knee pain. Prior Functional Status Baseline Function- ADL's Independent Baseline Function- Mobility Independent Baseline Function- Recreation/Hobbies No limitation golf activities due to pain after the game. Current Functional Impairments (Reported) Functional Limitations- ADL's Indepedent Functional Limitations- Mobility/Gait Indep with no AD with unlimited distance Functional Limitations- Recreation/ Limited golf activity (swing Hobbies phase) due to increase in knee pain Personal Factors Other Personal Factors That May Effect Chronicity of the condition Therapy/Recovery PT-OP-C Subjective Start: 01/14/18 08:06 Freq: Status: Active Protocol: Document 01/31/18 08:23 [facility] (Rec: 01/31/18 08:55 [facility] [id number]) OP-PT Subjective Patient Comments Patient Comments Pt reports his knees are doing well. PT-OP-F Manual Assessment Start: 01/14/18 08:06 Freq: Status: Active Protocol: Document 01/24/18 09:45 [facility] (Rec: 01/24/18 13:39 [facility] [id number]) Manual Assessments Joint Mobility Assessment Joint Mobility Assessment hypomobile L patella with medial glide PT-OP-G Mobility & Gait Start: 01/14/18 08:06 Freq: Status: Active Protocol: Document 01/14/18 08:16 EA (Rec: 01/14/18 13:35 EA [id number]) OP Gait Assessment Gait Gait Assistance Required: Independent Able to Maintain Weight Bearing Status Yes During Gait Assistive Devices Assistive Device None Gait Deviations General Gait Pattern Antalgic Factors Limiting Gait Function Factors Limiting Gait Function Pain PT-OP-J Posture/Palpation/Skin Start: 01/14/18 08:06 Freq: Status: Active Protocol: Document 01/14/18 08:16 EA (Rec: 01/14/18 13:35 EA [id number]) Posture Evaluation Position Standing Knee Posture (R) Ext. Tibial Torsion Patellar Posture (L) Laterally Tilted PT-OP-K Range of Motion Start: 01/14/18 08:06 Freq: Status: Active Protocol: Document 01/14/18 08:16 EA (Rec: 01/14/18 13:35 EA [id number]) Knee Goniometric Range of Motion Knee Measured in Degrees Right Knee ROM WFL Yes Left Knee ROM WFL Yes PT-OP-L Special Tests Start: 01/14/18 08:06 Freq: Status: Active Protocol: Document 01/14/18 08:16 EA (Rec: 01/14/18 13:35 EA [id number]) Special Tests Knee Special Tests Apley's Compression Test Results Neg Eliseo's Sign Test Results Both + Melissa's Test Test Results + Negin's Test Test Results both tight PT-OP-M Strength Start: 01/14/18 08:06 Freq: Status: Active Protocol: Document 01/14/18 08:16 EA (Rec: 01/14/18 13:35 EA [id number]) Knee Strength Knee Manual Muscle Testing Right Flexion (S2) 5 Normal Extension (L3) 5 Normal Left Flexion (S2) 4 Good Extension (L3) 4 Good PT-OP-Q Treatments Start: 01/14/18 08:06 Freq: Status: Active Protocol: Document 01/31/18 08:23 [facility] (Rec: 01/31/18 08:55 [facility] [id number]) Cardio Equipment Bicycle (Upright) Duration (Minutes) 6 Resistance 5 Gym Equipment Shuttle Recovery Unilateral Squats Resistance 87# Reps/Time x 12 reps Bilateral Squats Resistance 7 bands Shuttle Recovery Platform Stable Reps/Time 2x 15 Therapeutic Exercises Standing Exercises 4 Standing Exercise Name 4 way hip Side bilateral Resistance L2 band Reps/Minutes 10 each Comments hip flex, ext, abd, adduction 2 Standing Exercise Name Rails FWD lunges Reps/Minutes x10 reps x 2 sets each leg Manual Therapy Treatment Joint Mobilizations 1 Joint PF (left)> (Right) Direction medial, sup, inf Grade III Body Position Supine PT-OP-R Modalities Start: 01/14/18 08:06 Freq: Status: Active Protocol: Document 01/31/18 08:23 [facility] (Rec: 01/31/18 08:55 [facility] [id number]) Electric Stimulation Electric Stimulation Interferential Current (IFC) Body Location left quads Duration (Minutes) 15 Patient Position Hooklying Combined With Heat/Cold Hot Pack PT-OP-T Assessment and Plan Start: 01/14/18 08:06 Freq: Status: Active Protocol: Document 01/31/18 08:23 [facility] (Rec: 01/31/18 08:55 [facility] [id number]) Physical Therapy Assessment Assessment Summary Assessment Pt requires cueing especially in standing with hip exercises to maintain neutral body positions. Physical Therapy Plan Frequency and Duration Frequency of Treatment 2x/Week Duration of Treatment 8 wks Plan of Care Start Date 01/14/18 Plan of Care End Date 03/11/18 Next Visit Focus/Plan Next Note Type Treatment Note Next Visit Plan Advance as tolerated.
--- NOTE | 2018-02-03 12:57 | PT.OTN ---
Current Diagnoses Pain in right knee (02/03/18) Pain in left knee (02/03/18) Physical Therapy Treatment Note PT-OP-A Visit Information Start: 01/14/18 08:06 Freq: Status: Active Protocol: Document 02/03/18 08:00 AMB (Rec: 02/03/18 12:56 AMB [id number]) Out-Patient Physical Therapy Visit Information Visit Information Visit Type Treatment Note Visit Start Time 08:00 Visit Stop Time 08:55 Total Visit Minutes 55 Visit Number 9 PT-OP-B Current Condition Start: 01/14/18 08:06 Freq: Status: Active Protocol: Document 01/14/18 08:07 EA (Rec: 01/14/18 08:16 EA [id number]) Current Condition History of Current Condition Onset Date 6 months ago Current Complaints Both knee pain L>R History of Current Condition Presenting chronic knee pain with history knee twisting injury while playing golf 10 years ago with no major tear. Pain is minimal throughout 10 years and started to aggravated this last summer after playing golf. No diagnostic imaging taken recently. Prior Treatments and Tests 6 wks ago: Stem Cell treatment to both knees 3 wks platelets knee treatment and last would be tomorrow from today's date. Future Testing and Treatments Planned 01/15/18: Platelets knee treatment to both knees. Treatment Goals Patient/Caregiver Goals I wnat my knees to strengthen again to prevent further knee pain. Prior Functional Status Baseline Function- ADL's Independent Baseline Function- Mobility Independent Baseline Function- Recreation/Hobbies No limitation golf activities due to pain after the game. Current Functional Impairments (Reported) Functional Limitations- ADL's Indepedent Functional Limitations- Mobility/Gait Indep with no AD with unlimited distance Functional Limitations- Recreation/ Limited golf activity (swing Hobbies phase) due to increase in knee pain Personal Factors Other Personal Factors That May Effect Chronicity of the condition Therapy/Recovery PT-OP-C Subjective Start: 01/14/18 08:06 Freq: Status: Active Protocol: Document 02/03/18 08:00 AMB (Rec: 02/03/18 12:56 AMB [email or web address]) OP-PT Subjective Patient Comments Patient Comments Pt reports he has been doing his lunges, he forgot his band here so he has not bee doing those. PT-OP-F Manual Assessment Start: 01/14/18 08:06 Freq: Status: Active Protocol: Document 01/24/18 09:45 [facility] (Rec: 01/24/18 13:39 [facility] [email or web address]) Manual Assessments Joint Mobility Assessment Joint Mobility Assessment hypomobile L patella with medial glide PT-OP-G Mobility & Gait Start: 01/14/18 08:06 Freq: Status: Active Protocol: Document 01/14/18 08:16 EA (Rec: 01/14/18 13:35 EA [id number]) OP Gait Assessment Gait Gait Assistance Required: Independent Able to Maintain Weight Bearing Status Yes During Gait Assistive Devices Assistive Device None Gait Deviations General Gait Pattern Antalgic Factors Limiting Gait Function Factors Limiting Gait Function Pain PT-OP-J Posture/Palpation/Skin Start: 01/14/18 08:06 Freq: Status: Active Protocol: Document 01/14/18 08:16 EA (Rec: 01/14/18 13:35 EA [id number]) Posture Evaluation Position Standing Knee Posture (R) Ext. Tibial Torsion Patellar Posture (L) Laterally Tilted PT-OP-K Range of Motion Start: 01/14/18 08:06 Freq: Status: Active Protocol: Document 01/14/18 08:16 EA (Rec: 01/14/18 13:35 EA [id number]) Knee Goniometric Range of Motion Knee Measured in Degrees Right Knee ROM WFL Yes Left Knee ROM WFL Yes PT-OP-L Special Tests Start: 01/14/18 08:06 Freq: Status: Active Protocol: Document 01/14/18 08:16 EA (Rec: 01/14/18 13:35 EA [id number]) Special Tests Knee Special Tests Apley's Compression Test Results Neg Eliseo's Sign Test Results Both + Melissa's Test Test Results + Negin's Test Test Results both tight PT-OP-M Strength Start: 01/14/18 08:06 Freq: Status: Active Protocol: Document 01/14/18 08:16 EA (Rec: 01/14/18 13:35 EA [id number]) Knee Strength Knee Manual Muscle Testing Right Flexion (S2) 5 Normal Extension (L3) 5 Normal Left Flexion (S2) 4 Good Extension (L3) 4 Good PT-OP-Q Treatments Start: 01/14/18 08:06 Freq: Status: Active Protocol: Document 02/03/18 08:00 AMB (Rec: 02/03/18 12:56 AMB [email or web address]) Cardio Equipment Bicycle (Upright) Duration (Minutes) 6 Resistance 5 Gym Equipment Shuttle Recovery Bilateral Squats Resistance 7 bands Shuttle Recovery Platform Stable Reps/Time 2x 15 Therapeutic Exercises Standing Exercises 5 Standing Exercise Name multi direction lunge Reps/Minutes 10 ea Comments diagonal/ lateral 4 Standing Exercise Name 4 way hip Side bilateral Resistance L2 band Reps/Minutes 10 each Comments hip flex, ext, abd, adduction 3 Standing Exercise Name quads stretch: prone and supine Side bilateral Reps/Minutes x15SH x 2 reps 2 Standing Exercise Name Rails FWD lunges Reps/Minutes x10 reps x 2 sets each leg PT-OP-R Modalities Start: 01/14/18 08:06 Freq: Status: Active Protocol: Document 02/03/18 08:00 AMB (Rec: 02/03/18 12:56 AMB [id number]) Electric Stimulation Electric Stimulation Pre-Modulated Body Location B knees Duration (Minutes) 15 Combined With Heat/Cold Hot Pack PT-OP-T Assessment and Plan Start: 01/14/18 08:06 Freq: Status: Active Protocol: Document 02/03/18 08:00 AMB (Rec: 02/03/18 12:56 AMB [email or web address]) Physical Therapy Assessment Assessment Summary Assessment Pt required verbal cues for form with tband exercises. Stiffness on L knee continues. Physical Therapy Plan Frequency and Duration Frequency of Treatment 2x/Week Duration of Treatment 8 wks Plan of Care Start Date 01/14/18 Plan of Care End Date 03/11/18 Next Visit Focus/Plan Next Note Type Treatment Note Next Visit Plan Pt with one more appointment before going on vacation- so work on HEP he can do while on vacation.
--- NOTE | 2018-02-05 10:28 | PT.OTN ---
Current Diagnoses Pain in right knee (02/05/18) Pain in left knee (02/05/18) Physical Therapy Treatment Note PT-OP-A Visit Information Start: 01/14/18 08:06 Freq: Status: Active Protocol: Document 02/05/18 07:46 EA (Rec: 02/05/18 08:15 EA [id number]) Out-Patient Physical Therapy Visit Information Visit Information Visit Type Treatment Note Visit Start Time 07:30 Visit Stop Time 08:20 Total Visit Minutes 50 Visit Number 10 PT-OP-B Current Condition Start: 01/14/18 08:06 Freq: Status: Active Protocol: Document 01/14/18 08:07 EA (Rec: 01/14/18 08:16 EA [id number]) Current Condition History of Current Condition Onset Date 6 months ago Current Complaints Both knee pain L>R History of Current Condition Presenting chronic knee pain with history knee twisting injury while playing golf 10 years ago with no major tear. Pain is minimal throughout 10 years and started to aggravated this last summer after playing golf. No diagnostic imaging taken recently. Prior Treatments and Tests 6 wks ago: Stem Cell treatment to both knees 3 wks platelets knee treatment and last would be tomorrow from today's date. Future Testing and Treatments Planned 01/15/18: Platelets knee treatment to both knees. Treatment Goals Patient/Caregiver Goals I wnat my knees to strengthen again to prevent further knee pain. Prior Functional Status Baseline Function- ADL's Independent Baseline Function- Mobility Independent Baseline Function- Recreation/Hobbies No limitation golf activities due to pain after the game. Current Functional Impairments (Reported) Functional Limitations- ADL's Indepedent Functional Limitations- Mobility/Gait Indep with no AD with unlimited distance Functional Limitations- Recreation/ Limited golf activity (swing Hobbies phase) due to increase in knee pain Personal Factors Other Personal Factors That May Effect Chronicity of the condition Therapy/Recovery PT-OP-C Subjective Start: 01/14/18 08:06 Freq: Status: Active Protocol: Document 02/05/18 07:46 EA (Rec: 02/05/18 08:15 EA [id number]) OP-PT Subjective Patient Comments Patient Comments Pt reports knees are getting better and he has been consistent with HEP. Patient Questionnaires Lower Extremity Functional Scale LEFS Score 64 LEFS Impairment 1 to 19% Impaired (Score 63-79 ) PT-OP-F Manual Assessment Start: 01/14/18 08:06 Freq: Status: Active Protocol: Document 01/24/18 09:45 [facility] (Rec: 01/24/18 13:39 [facility] [email or web address]) Manual Assessments Joint Mobility Assessment Joint Mobility Assessment hypomobile L patella with medial glide PT-OP-G Mobility & Gait Start: 01/14/18 08:06 Freq: Status: Active Protocol: Document 01/14/18 08:16 EA (Rec: 01/14/18 13:35 EA [id number]) OP Gait Assessment Gait Gait Assistance Required: Independent Able to Maintain Weight Bearing Status Yes During Gait Assistive Devices Assistive Device None Gait Deviations General Gait Pattern Antalgic Factors Limiting Gait Function Factors Limiting Gait Function Pain PT-OP-J Posture/Palpation/Skin Start: 01/14/18 08:06 Freq: Status: Active Protocol: Document 01/14/18 08:16 EA (Rec: 01/14/18 13:35 EA [id number]) Posture Evaluation Position Standing Knee Posture (R) Ext. Tibial Torsion Patellar Posture (L) Laterally Tilted PT-OP-K Range of Motion Start: 01/14/18 08:06 Freq: Status: Active Protocol: Document 01/14/18 08:16 EA (Rec: 01/14/18 13:35 EA [id number]) Knee Goniometric Range of Motion Knee Measured in Degrees Right Knee ROM WFL Yes Left Knee ROM WFL Yes PT-OP-L Special Tests Start: 01/14/18 08:06 Freq: Status: Active Protocol: Document 01/14/18 08:16 EA (Rec: 01/14/18 13:35 EA [id number]) Special Tests Knee Special Tests Apley's Compression Test Results Neg Eliseo's Sign Test Results Both + Melissa's Test Test Results + Negin's Test Test Results both tight PT-OP-M Strength Start: 01/14/18 08:06 Freq: Status: Active Protocol: Document 01/14/18 08:16 EA (Rec: 01/14/18 13:35 EA [id number]) Knee Strength Knee Manual Muscle Testing Right Flexion (S2) 5 Normal Extension (L3) 5 Normal Left Flexion (S2) 4 Good Extension (L3) 4 Good PT-OP-Q Treatments Start: 01/14/18 08:06 Freq: Status: Active Protocol: Document 02/05/18 07:46 EA (Rec: 02/05/18 08:15 EA [id number]) Cardio Equipment Recumbent Stepper (Sci-Fit) Duration (Minutes) 6 Resistance 2 Gym Equipment Cable Column (Body Solid) Leg Extension Resistance 4-8 plates Reps/Time 12-10-8 reps Shuttle Recovery Unilateral Squats Resistance 4 bands Reps/Time x 12 reps Bilateral Squats Resistance 7 bands Shuttle Recovery Platform Stable Reps/Time 2x 15 Therapeutic Exercises Standing Exercises 3 Standing Exercise Name quads stretch: prone and supine Side bilateral Reps/Minutes x15SH x 2 reps 2 Standing Exercise Name Rails FWD lunges Reps/Minutes x10 reps x 2 sets each leg 1 Standing Exercise Name wall squats Reps/Minutes x10 reps x 2 sets Manual Therapy Treatment Joint Mobilizations 1 Joint PF (left) Direction medial Grade III Body Position Supine PT-OP-R Modalities Start: 01/14/18 08:06 Freq: Status: Active Protocol: Document 02/05/18 07:46 EA (Rec: 02/05/18 08:15 EA [id number]) Hot Pack/Cold Pack Treatment Hot Pack Location both knees Patient Position Supine Treatment Duration (minutes) 10 Patient Tolerance Good PT-OP-T Assessment and Plan Start: 01/14/18 08:06 Freq: Status: Active Protocol: Document 02/05/18 07:46 EA (Rec: 02/05/18 08:15 EA [id number]) Physical Therapy Assessment Assessment Summary Assessment Pt continue to progress and will cont. to benefit with skilled PT. Advance as tolerated. Physical Therapy Plan Next Visit Focus/Plan Next Note Type Treatment Note
--- NOTE | 2018-02-24 13:56 | PT.OTN ---
Current Diagnoses Pain in right knee (02/24/18) Pain in left knee (02/24/18) Physical Therapy Treatment Note PT-OP-A Visit Information Start: 01/14/18 08:06 Freq: Status: Active Protocol: Document 02/24/18 08:23 EA (Rec: 02/24/18 09:00 EA [id number]) Out-Patient Physical Therapy Visit Information Visit Information Visit Type Treatment Note Visit Start Time 08:15 Visit Stop Time 09:00 Total Visit Minutes 50 Visit Number 11 PT-OP-B Current Condition Start: 01/14/18 08:06 Freq: Status: Active Protocol: Document 01/14/18 08:07 EA (Rec: 01/14/18 08:16 EA [id number]) Current Condition History of Current Condition Onset Date 6 months ago Current Complaints Both knee pain L>R History of Current Condition Presenting chronic knee pain with history knee twisting injury while playing golf 10 years ago with no major tear. Pain is minimal throughout 10 years and started to aggravated this last summer after playing golf. No diagnostic imaging taken recently. Prior Treatments and Tests 6 wks ago: Stem Cell treatment to both knees 3 wks platelets knee treatment and last would be tomorrow from today's date. Future Testing and Treatments Planned 01/15/18: Platelets knee treatment to both knees. Treatment Goals Patient/Caregiver Goals I wnat my knees to strengthen again to prevent further knee pain. Prior Functional Status Baseline Function- ADL's Independent Baseline Function- Mobility Independent Baseline Function- Recreation/Hobbies No limitation golf activities due to pain after the game. Current Functional Impairments (Reported) Functional Limitations- ADL's Indepedent Functional Limitations- Mobility/Gait Indep with no AD with unlimited distance Functional Limitations- Recreation/ Limited golf activity (swing Hobbies phase) due to increase in knee pain Personal Factors Other Personal Factors That May Effect Chronicity of the condition Therapy/Recovery PT-OP-C Subjective Start: 01/14/18 08:06 Freq: Status: Active Protocol: Document 02/24/18 08:23 EA (Rec: 02/24/18 09:00 EA [id number]) OP-PT Subjective Patient Comments Patient Comments Pt reports compliant with HEP while at vacatioon and no increased in symptoms in the past weeks. Pt reports is planned to be discharged with fitness exercises after 2 weeks. PT-OP-F Manual Assessment Start: 01/14/18 08:06 Freq: Status: Active Protocol: Document 01/24/18 09:45 [facility] (Rec: 01/24/18 13:39 [facility] [id number]) Manual Assessments Joint Mobility Assessment Joint Mobility Assessment hypomobile L patella with medial glide PT-OP-G Mobility & Gait Start: 01/14/18 08:06 Freq: Status: Active Protocol: Document 01/14/18 08:16 EA (Rec: 01/14/18 13:35 EA [id number]) OP Gait Assessment Gait Gait Assistance Required: Independent Able to Maintain Weight Bearing Status Yes During Gait Assistive Devices Assistive Device None Gait Deviations General Gait Pattern Antalgic Factors Limiting Gait Function Factors Limiting Gait Function Pain PT-OP-J Posture/Palpation/Skin Start: 01/14/18 08:06 Freq: Status: Active Protocol: Document 01/14/18 08:16 EA (Rec: 01/14/18 13:35 EA [id number]) Posture Evaluation Position Standing Knee Posture (R) Ext. Tibial Torsion Patellar Posture (L) Laterally Tilted PT-OP-K Range of Motion Start: 01/14/18 08:06 Freq: Status: Active Protocol: Document 01/14/18 08:16 EA (Rec: 01/14/18 13:35 EA [id number]) Knee Goniometric Range of Motion Knee Measured in Degrees Right Knee ROM WFL Yes Left Knee ROM WFL Yes PT-OP-L Special Tests Start: 01/14/18 08:06 Freq: Status: Active Protocol: Document 01/14/18 08:16 EA (Rec: 01/14/18 13:35 EA [id number]) Special Tests Knee Special Tests Apley's Compression Test Results Neg Eliseo's Sign Test Results Both + Melissa's Test Test Results + Negin's Test Test Results both tight PT-OP-M Strength Start: 01/14/18 08:06 Freq: Status: Active Protocol: Document 01/14/18 08:16 EA (Rec: 01/14/18 13:35 EA [id number]) Knee Strength Knee Manual Muscle Testing Right Flexion (S2) 5 Normal Extension (L3) 5 Normal Left Flexion (S2) 4 Good Extension (L3) 4 Good PT-OP-Q Treatments Start: 01/14/18 08:06 Freq: Status: Active Protocol: Document 02/24/18 08:23 EA (Rec: 02/24/18 09:00 EA [id number]) Gym Equipment Cable Column (Body Solid) Leg Extension Resistance 4-8 plates Reps/Time 12-10-8 reps Shuttle Recovery Unilateral Squats Resistance 4 bands Reps/Time x 12 reps Bilateral Squats Resistance 7 bands Shuttle Recovery Platform Stable Reps/Time 2x 15 Therapeutic Exercises Supine Exercises 1 Supine Exercise Name 90-90 Reps/Minutes x30SH x 2 reps Sidelying Exercises 1 Sidelying Exercise Name ITB stretch on EOB Side bilateral Reps/Minutes x15SH x 2 Standing Exercises 4 Standing Exercise Name 4 way hip Side bilateral Resistance L2 band Reps/Minutes 10 each Comments hip flex, ext, abd, adduction 3 Standing Exercise Name quads stretch: prone and supine Side bilateral Reps/Minutes x15SH x 2 reps 2 Standing Exercise Name FWD lunges Reps/Minutes x10 reps x 2 sets each leg 1 Standing Exercise Name wall squats Reps/Minutes x10 reps x 2 sets Manual Therapy Treatment Joint Mobilizations 1 Joint PF (left) Direction medial Grade III Body Position Supine PT-OP-R Modalities Start: 01/14/18 08:06 Freq: Status: Active Protocol: Document 02/24/18 08:23 EA (Rec: 02/24/18 09:00 EA [id number]) Electric Stimulation Electric Stimulation Interferential Current (IFC) Body Location both quads Duration (Minutes) 15 Patient Position Hooklying Combined With Heat/Cold Hot Pack PT-OP-T Assessment and Plan Start: 01/14/18 08:06 Freq: Status: Active Protocol: Document 02/24/18 08:23 EA (Rec: 02/24/18 09:00 EA [id number]) Physical Therapy Assessment Assessment Summary Assessment Noted improved strength and mobility with no noted any signs of difficulty. Patient recommends to discharge to fitness program next visit if no more complaint. Physical Therapy Plan Next Visit Focus/Plan Next Visit Plan Possible d/c to fitness next visit.
--- NOTE | 2018-03-03 17:29 | PT.OTN ---
Current Diagnoses Pain in right knee (03/03/18) Pain in left knee (03/03/18) Physical Therapy Treatment Note PT-OP-A Visit Information Start: 01/14/18 08:06 Freq: Status: Active Protocol: Document 03/03/18 08:55 EA (Rec: 03/03/18 09:02 EA [id number]) Out-Patient Physical Therapy Visit Information Visit Information Visit Type Treatment Note Visit Note Dicharge note today Visit Start Time 08:15 Visit Stop Time 09:00 Total Visit Minutes 45 Visit Number 12 PT-OP-B Current Condition Start: 01/14/18 08:06 Freq: Status: Active Protocol: Document 01/14/18 08:07 EA (Rec: 01/14/18 08:16 EA [id number]) Current Condition History of Current Condition Onset Date 6 months ago Current Complaints Both knee pain L>R History of Current Condition Presenting chronic knee pain with history knee twisting injury while playing golf 10 years ago with no major tear. Pain is minimal throughout 10 years and started to aggravated this last summer after playing golf. No diagnostic imaging taken recently. Prior Treatments and Tests 6 wks ago: Stem Cell treatment to both knees 3 wks platelets knee treatment and last would be tomorrow from today's date. Future Testing and Treatments Planned 01/15/18: Platelets knee treatment to both knees. Treatment Goals Patient/Caregiver Goals I wnat my knees to strengthen again to prevent further knee pain. Prior Functional Status Baseline Function- ADL's Independent Baseline Function- Mobility Independent Baseline Function- Recreation/Hobbies No limitation golf activities due to pain after the game. Current Functional Impairments (Reported) Functional Limitations- ADL's Indepedent Functional Limitations- Mobility/Gait Indep with no AD with unlimited distance Functional Limitations- Recreation/ Limited golf activity (swing Hobbies phase) due to increase in knee pain Personal Factors Other Personal Factors That May Effect Chronicity of the condition Therapy/Recovery PT-OP-C Subjective Start: 01/14/18 08:06 Freq: Status: Active Protocol: Document 03/03/18 08:55 EA (Rec: 03/03/18 09:02 EA [id number]) OP-PT Subjective Patient Comments Patient Comments Pt reports both knees does not bother him a lot and is ready to discharge today; would like to know exercises to perform in the gym safely; states planned to enrol this following week. PT-OP-F Manual Assessment Start: 01/14/18 08:06 Freq: Status: Active Protocol: Document 01/24/18 09:45 RCC (Rec: 01/24/18 13:39 RCC [id number]) Manual Assessments Joint Mobility Assessment Joint Mobility Assessment hypomobile L patella with medial glide PT-OP-G Mobility & Gait Start: 01/14/18 08:06 Freq: Status: Active Protocol: Document 01/14/18 08:16 EA (Rec: 01/14/18 13:35 EA [id number]) OP Gait Assessment Gait Gait Assistance Required: Independent Able to Maintain Weight Bearing Status Yes During Gait Assistive Devices Assistive Device None Gait Deviations General Gait Pattern Antalgic Factors Limiting Gait Function Factors Limiting Gait Function Pain PT-OP-J Posture/Palpation/Skin Start: 01/14/18 08:06 Freq: Status: Active Protocol: Document 01/14/18 08:16 EA (Rec: 01/14/18 13:35 EA [id number]) Posture Evaluation Position Standing Knee Posture (R) Ext. Tibial Torsion Patellar Posture (L) Laterally Tilted PT-OP-K Range of Motion Start: 01/14/18 08:06 Freq: Status: Active Protocol: Document 01/14/18 08:16 EA (Rec: 01/14/18 13:35 EA [id number]) Knee Goniometric Range of Motion Knee Measured in Degrees Right Knee ROM WFL Yes Left Knee ROM WFL Yes PT-OP-L Special Tests Start: 01/14/18 08:06 Freq: Status: Active Protocol: Document 01/14/18 08:16 EA (Rec: 01/14/18 13:35 EA [id number]) Special Tests Knee Special Tests Apley's Compression Test Results Neg Eliseo's Sign Test Results Both + Melissa's Test Test Results + Negin's Test Test Results both tight PT-OP-M Strength Start: 01/14/18 08:06 Freq: Status: Active Protocol: Document 01/14/18 08:16 EA (Rec: 01/14/18 13:35 EA [id number]) Knee Strength Knee Manual Muscle Testing Right Flexion (S2) 5 Normal Extension (L3) 5 Normal Left Flexion (S2) 4 Good Extension (L3) 4 Good PT-OP-Q Treatments Start: 01/14/18 08:06 Freq: Status: Active Protocol: Document 03/03/18 08:55 EA (Rec: 03/03/18 09:02 EA [id number]) Cardio Equipment Bicycle (Upright) Duration (Minutes) 6 Resistance 5 Other warm up: HEP Gym Equipment Cable Column (Body Solid) Leg Extension Details HEP comp Resistance 4-8 plates Reps/Time 12-10-8 reps Shuttle Recovery Bilateral Squats Details HEP comp: Leg press machine Resistance 7 bands Shuttle Recovery Platform Stable Reps/Time 2x 15 Therapeutic Exercises Supine Exercises 1 Supine Exercise Name 90-90 Reps/Minutes x30SH x 2 reps Comments HEP comp Sidelying Exercises 1 Sidelying Exercise Name ITB stretch on EOB Side bilateral Reps/Minutes x15SH x 2 Comments HEP comp Standing Exercises 5 Standing Exercise Name multi direction lunge Reps/Minutes 10 ea Comments diagonal/ lateral [address] Exercise Name [address] hip Side bilateral Resistance L2 band Reps/Minutes 10 each Comments hip flex, ext, abd, adduction 3 Standing Exercise Name quads stretch: prone and supine Side bilateral Reps/Minutes x15SH x 2 reps Comments HEP comp 2 Standing Exercise Name FWD lunges Reps/Minutes x10 reps x 2 sets each leg Comments GHEP comp 1 Standing Exercise Name wall squats Reps/Minutes x10 reps x 2 sets Comments HEP comp Self-Care/Home Management Treatment Education Patient Education Home Exercise Program Pain Management PT-OP-R Modalities Start: 01/14/18 08:06 Freq: Status: Active Protocol: Document 02/24/18 08:23 EA (Rec: 02/24/18 09:00 EA [id number]) Electric Stimulation Electric Stimulation Interferential Current (IFC) Body Location both quads Duration (Minutes) 15 Patient Position Hooklying Combined With Heat/Cold Hot Pack PT-OP-T Assessment and Plan Start: 01/14/18 08:06 Freq: Status: Active Protocol: Document 03/03/18 08:55 EA (Rec: 03/03/18 09:02 EA [id number]) Physical Therapy Assessment Assessment Summary Assessment Patient is discharge today after performing HEP and educated with safety HEP. Patient is improved upon discharge. Physical Therapy Plan Discharge Physical Therapy Discharge Reasons Patient Request
--- NOTE | 2018-03-03 17:50 | PT.OPDS ---
Current Diagnoses Pain in right knee (03/03/18) Pain in left knee (03/03/18) Provider Visit Care Team Role Provider Type Phi Carroll MD Family Provider Physician Primary Care Provider Specialty: Family Practice Address: [address] [place] [address], [address] Email: NAYELI Interiano Attending Provider Non-Staff Specialty: Medical Address: [address] [place] [address], [address] Email: Visit Number Visit Number 12 Discharge Summary PT-OP-B Current Condition Start: 01/14/18 08:06 Freq: Status: Active Protocol: Document 01/14/18 08:07 EA (Rec: 01/14/18 08:16 EA [id number]) Current Condition History of Current Condition Onset Date 6 months ago Current Complaints Both knee pain L>R History of Current Condition Presenting chronic knee pain with history knee twisting injury while playing golf 10 years ago with no major tear. Pain is minimal throughout 10 years and started to aggravated this last summer after playing golf. No diagnostic imaging taken recently. Prior Treatments and Tests 6 wks ago: Stem Cell treatment to both knees 3 wks platelets knee treatment and last would be tomorrow from today's date. Future Testing and Treatments Planned 01/15/18: Platelets knee treatment to both knees. Treatment Goals Patient/Caregiver Goals I wnat my knees to strengthen again to prevent further knee pain. Prior Functional Status Baseline Function- ADL's Independent Baseline Function- Mobility Independent Baseline Function- Recreation/Hobbies No limitation golf activities due to pain after the game. Current Functional Impairments (Reported) Functional Limitations- ADL's Indepedent Functional Limitations- Mobility/Gait Indep with no AD with unlimited distance Functional Limitations- Recreation/ Limited golf activity (swing Hobbies phase) due to increase in knee pain Personal Factors Other Personal Factors That May Effect Chronicity of the condition Therapy/Recovery PT-OP-C Subjective Start: 01/14/18 08:06 Freq: Status: Active Protocol: Document 03/03/18 08:55 EA (Rec: 03/03/18 09:02 EA [id number]) OP-PT Subjective Patient Comments Patient Comments Pt reports both knees does not bother him a lot and is ready to discharge today; would like to know exercises to perform in the gym safely; states planned to enrol this following week. PT-OP-F Manual Assessment Start: 01/14/18 08:06 Freq: Status: Active Protocol: Document 01/24/18 09:45 RCC (Rec: 01/24/18 13:39 RCC [id number]) Manual Assessments Joint Mobility Assessment Joint Mobility Assessment hypomobile L patella with medial glide PT-OP-G Mobility & Gait Start: 01/14/18 08:06 Freq: Status: Active Protocol: Document 01/14/18 08:16 EA (Rec: 01/14/18 13:35 EA [id number]) OP Gait Assessment Gait Gait Assistance Required: Independent Able to Maintain Weight Bearing Status Yes During Gait Assistive Devices Assistive Device None Gait Deviations General Gait Pattern Antalgic Factors Limiting Gait Function Factors Limiting Gait Function Pain PT-OP-J Posture/Palpation/Skin Start: 01/14/18 08:06 Freq: Status: Active Protocol: Document 01/14/18 08:16 EA (Rec: 01/14/18 13:35 EA [id number]) Posture Evaluation Position Standing Knee Posture (R) Ext. Tibial Torsion Patellar Posture (L) Laterally Tilted PT-OP-K Range of Motion Start: 01/14/18 08:06 Freq: Status: Active Protocol: Document 01/14/18 08:16 EA (Rec: 01/14/18 13:35 EA [id number]) Knee Goniometric Range of Motion Knee Measured in Degrees Right Knee ROM WFL Yes Left Knee ROM WFL Yes PT-OP-L Special Tests Start: 01/14/18 08:06 Freq: Status: Active Protocol: Document 01/14/18 08:16 EA (Rec: 01/14/18 13:35 EA [id number]) Special Tests Knee Special Tests Apley's Compression Test Results Neg Eliseo's Sign Test Results Both + Melissa's Test Test Results + Negin's Test Test Results both tight PT-OP-M Strength Start: 01/14/18 08:06 Freq: Status: Active Protocol: Document 01/14/18 08:16 EA (Rec: 01/14/18 13:35 EA [id number]) Knee Strength Knee Manual Muscle Testing Right Flexion (S2) 5 Normal Extension (L3) 5 Normal Left Flexion (S2) 4 Good Extension (L3) 4 Good PT-OP-T Assessment and Plan Start: 01/14/18 08:06 Freq: Status: Active Protocol: Document 03/03/18 08:55 EA (Rec: 03/03/18 09:02 EA [id number]) Physical Therapy Assessment Assessment Summary Assessment Patient is discharge today after performing HEP and educated with safety HEP. Patient is improved upon this discharge. Physical Therapy Plan Discharge Physical Therapy Discharge Reasons Patient Request
== END 2018-09-25 10:18 | disposition home or self-care (01) ==
LOC: PHYS 08:15
PROVIDERS: Family Provider Family Medicine; PCP Family Medicine; Visit Provider Nurse Practitioner
DX: M25.562 Pain in left knee (principal); M25.561 Pain in right knee
CPT/HCPCS: 97014; 97110; 97140; 97161; 97535; G0283

== ENCOUNTER → 2018-05-23 10:43 | Outpatient (CLI) | payer MEDICARE, OTHER, SELFPAY ==
[2018-05-23 12:00] LABS: Alanine Aminotransferase 45 IU/L (21-72); Albumin 4.5 g/dL (3.5-5.0); Albumin Globulin Ratio 1.5 (1.0-2.8); Alkaline Phosphatase 54 U/L (38-126); Aspartate Aminotransferase 45 IU/L (17-59); BUN Creatinine Ratio 27.8 (6-22); Bilirubin Total 0.4 mg/dL (0.2-1.3); Blood Urea Nitrogen 25 mg/dL (9-20); Calcium 9.6 mg/dL (8.4-10.2); Carbon Dioxide 28 mmol/L (22-32); Chloride 106 mmol/L (98-107); Cholesterol 213 mg/dL (140-199); Estimated Glomerular Filt Rate > 60.0 mL/min (>60); Glucose 99 mg/dL (80-110); HDL Cholesterol 68 mg/dL (40-60); HEMOLYSIS < 15 (0-50); LDL Cholesterol Calculated 117 mg/dL (<100); Potassium 4.4 mmol/L (3.4-5.1); Sodium 142 mmol/L (137-145); Total Protein 7.5 g/dL (6.3-8.2); Triglycerides 141 mg/dL (35-150)
[2018-05-23 12:18] LABS: Vitamin D 25 Hydroxy (D3) 59.6 ng/mL (30.0-100.0)
[2018-05-23 12:27] LABS: Prostate Specific Antigen Scrn 0.909 ng/mL (0.1-4.0)
== END ==
PROVIDERS: PCP Student in an Organized Health Care Education/Training Program; Visit Provider Student in an Organized Health Care Education/Training Program
DX: E55.9 Vitamin D deficiency, unspecified (principal); Z12.5 Encounter for screening for malignant neoplasm of prostate; Z13.220 Encounter for screening for lipoid disorders; I10 Essential (primary) hypertension
CPT/HCPCS: 36415; 80053; 80061; 82306; G0103

== ENCOUNTER 2018-09-22 07:15 | Day surgery (SDC) | payer MEDICARE, OTHER, SELFPAY ==
--- NOTE | 2018-09-22 | PATH_ITS ---
[facility] Accession Number: [id number] . 01 Material submitted: . cecum - CECAL POLYP . 01 Diagnosis: Cecum, Polyp, Biopsy: Tubular adenoma. MRV/09/23/2018 . 01 Electronically signed: . Aleyda Jackman MD, Pathologist NPI- [id number] . 01 Gross description: . CECAL POLYP: Received in formalin is 1 fragment(s) of levy, soft tissue measuring 0.5 x 0.3 x 0.3 cm submitted entirely in 1 cassette(s) /CKI /CKI . 01 Pathologist provided ICD-10: D12.0 . 01 CPT . 496100 Performed at: 01 [facility] [address] [address] [place] [address] [address], [place], [place] [id number] MD Lc Chase MD Phone: [phone]
[2018-09-22 07:44] VITALS: BMI 22.4
[2018-09-22 08:00] VITALS: BP 159/88; PULSE 69; RESP 12; TEMP 36.3; O2SAT 98
[2018-09-22] MEDS: SODIUM CHLORIDE 0.9% 1,000 ML 200 ML IV (08:06)
--- NOTE | 2018-09-22 08:48 | PM.HP.1 ---
History of Present Illness Date Patient Seen: 09/22/18 Time Patient Seen: 08:48 Chief complaint: [id number] Narrative: 68yo M for low risk screening, no family history, no alarm symptoms. Last scope clear about 10 years ago. Patient History Medical History Arthritis (Chronic) Dupuytren's contracture (Chronic) Hay fever (Chronic) Hyperlipidemia (Chronic) Hypertension (Chronic) Surgical History History of tonsillectomy Status post appendectomy Family History (Updated 10/18/14 @ 00:00 by Phi Carroll MD) Brother Diabetes mellitus Hypertension Brother Diabetes mellitus Hypertension High cholesterol Mini stroke History of kidney cancer Alzheimer's dementia Grandfather Heart attack Mother Diabetes mellitus Heart attack H/O blood clots Congestive heart failure Grandmother Heart attack Sister Age: 79 Kidney tumor Sister Age: 77 Diabetes mellitus Hypertension High cholesterol H/O blood clots Factor V Leiden Mini stroke Bladder cancer Breast cancer Parkinson disease Sister Diabetes mellitus Hypertension High cholesterol High triglycerides Factor V Leiden Acid reflux Brother No problems noted. Brother No problems noted. Brother No problems noted. Father No problems noted. Grandmother No problems noted. Social History household members: spouse Smoking Status: Never smoker Family & Social History Family History Brother Diabetes mellitus Hypertension Brother Diabetes mellitus Hypertension High cholesterol Mini stroke History of kidney cancer Alzheimer's dementia Grandfather Heart attack Mother Diabetes mellitus Heart attack H/O blood clots Congestive heart failure Grandmother Heart attack Sister Age: 79 Kidney tumor Sister Age: 77 Diabetes mellitus Hypertension High cholesterol H/O blood clots Factor V Leiden Mini stroke Bladder cancer Breast cancer Parkinson disease Sister Diabetes mellitus Hypertension High cholesterol High triglycerides Factor V Leiden Acid reflux Brother No problems noted. Brother No problems noted. Brother No problems noted. Father No problems noted. Grandmother No problems noted. Social History: household members spouse Tobacco & Substance use: Smoking Status Never smoker Meds Home Medications Medication Instructions Recorded Confirmed Type sildenafil (antihypertensive) 20 20 mg PO .COMPLEX #50 tab 05/29/18 09/22/18 Rx mg tablet carvedilol 6.25 mg tablet 6.25 mg PO BID #180 tab 06/17/18 09/22/18 Rx lisinopril 40 mg tablet 40 mg PO QDAY #90 tab 06/17/18 09/22/18 Rx fluticasone propionate 1 spray INTRANASAL BID 09/22/18 09/22/18 History vitamin E 100 unit PO DAILY 09/22/18 09/22/18 History Allergies Allergy/AdvReac Type Severity Reaction Status Date / Time ibuprofen [IBUPROFEN] Allergy Severe SNEEZING, Verified 09/22/18 07:42 RHINITIS naproxen [NAPROXEN] Allergy Severe WHEEZING Verified 09/22/18 07:42 Penicillins [PENICILLINS] Allergy Unknown unknown Verified 09/22/18 07:42 Review of Systems Constitutional Constitutional: Reports as per HPI Exam Vital Signs (past 8 hours): - 09/22/18 08:00 Temperature 97.4 F L Pulse Rate 69 Respiratory Rate 12 Blood Pressure 159/88 H Pulse Oximetry 98 Oxygen Delivery Method Room Air Narrative Exam Narrative: AAO, NAD, male of healthy weight EOMI, MMM, no scleral icterus unlabored RA soft, nt/nd MAEW visible skin dry and intact Assessment & Plan (1) Screening for colorectal cancer: Current visit: Yes Status: Acute Assessment & Plan narrative: - low risk screening colonoscopy --> all R/B/A discussed and pt wishes to proceed
--- NOTE | 2018-09-22 08:53 | PM.OP.ENDO ---
Operative Date/Time/Diagnoses Date of procedure: 09/22/18 Time of procedure: 09:18 Pre-op diagnosis: low risk screening colonoscopy Post-op diagnosis: same Procedure & Clinicians Study performed: Low risk screening colonoscopy Same procedure as scheduled: Yes Indications: 68yo M with no personal history of polyps nor family history of cancer. Surgeon: Grecia Giraldo Procedure Notes SCOAP/Timeout: 08 Procedure in detail: After obtaining informed consent, the patient was brought to the GI suite and placed in the left lateral decubitus position on the examination table. After placement of appropriate monitors, the patient was given incremental doses of Versed and Fentanyl until an appropriate level of sedation was achieved. A time out was held per SCOAP protocol. A digital rectal examination was performed and did not reveal any masses or obstructing lesions nor external hemorrhoids. The colonoscope was gently passed into the patient's anus and the entire colon navigated to the level of the cecum with minimal difficulty. Prep was adequate. Once in the cecum, the scope was slowly withdrawn being sure to go before and beyond all mucosal folds and prominences as able to get a thorough examination. A single small polyp was noted in the cecum and was removed for biopsy. Other findings include scattered diverticulosis, primarily in sigmoid. At the level of the rectal vault, the scope was retroflexed and the internal anal canal was examined. The scope was straightened and air aspirated from the colon. The instrument was removed from the patient's body and the procedure was concluded. The patient was allowed to awaken from sedation without difficulty and taken to the post-anesthesia care unit in good condition. Scope withdrawal time: 11 min Sedation minutes: 23 Findings: diverticulosis (scattered, primarily sigmoid but isolated spots throughout) and polyp (cecal polyp- 1mm, hyperplastic in appearance) Specimen(s): other (cecal polyp) Complications: none Impression: 1. Scattered diverticulosis 2. Cecal polyp- hyperplastic in appearance Recommendations: Colonscopy in 10 years (pending path) and High fiber diet Follow up: as needed Disposition: PACU
[2018-09-22] MEDS: fentaNYL 250 MCG/5 ML INJ IV (09:20)
[2018-09-22 09:25] VITALS: BP 141/74; PULSE 65; RESP 17; TEMP 36.4; O2SAT 97
[2018-09-22] MEDS: MIDAZOLAM 5 MG/5 ML VIAL IV (09:30)
== END 2018-09-22 09:49 | disposition home or self-care (01) ==
PROVIDERS: PCP Student in an Organized Health Care Education/Training Program; Visit Provider Surgery
PROC: 0DJD8ZZ Inspection of Lower Intestinal Tract, Via Natural or Artificial Opening Endoscopic (ICD-10-PCS; CPT 45378; principal; 2018-09-22 08:45)
DX: Z12.11 Encounter for screening for malignant neoplasm of colon (principal); K57.30 Diverticulosis of large intestine without perforation or abscess without bleeding; I10 Essential (primary) hypertension; E78.5 Hyperlipidemia, unspecified; D12.0 Benign neoplasm of cecum
CPT/HCPCS: 45380; 88305; 99152; 99153; J2250; J3010

== ENCOUNTER → 2019-10-14 10:49 | Outpatient (CLI) | payer MEDICARE, OTHER, SELFPAY ==
[2019-10-14 12:01] LABS: BUN Creatinine Ratio 23.5 (6-22); Blood Urea Nitrogen 20 mg/dL (9-20); Calcium 9.6 mg/dL (8.4-10.2); Carbon Dioxide 27 mmol/L (22-32); Chloride 106 mmol/L (98-107); Estimated Glomerular Filt Rate > 60.0 mL/min (>60); Glucose 96 mg/dL (80-110); HEMOLYSIS < 15 (0-50); Potassium 4.6 mmol/L (3.4-5.1); Sodium 139 mmol/L (137-145)
== END ==
PROVIDERS: PCP Student in an Organized Health Care Education/Training Program; Referring Provider Student in an Organized Health Care Education/Training Program; Visit Provider Student in an Organized Health Care Education/Training Program
DX: I10 Essential (primary) hypertension (principal)
CPT/HCPCS: 36415; 80048

== ENCOUNTER → 2020-10-23 11:14 | Outpatient (CLI) | payer MEDICARE, OTHER, SELFPAY ==
--- NOTE | 2020-10-23 11:16 | DI.RAD.S_ITS ---
PROCEDURE: XR KNEE LT 3V INDICATIONS: fall left knee pain TECHNIQUE: 3 views of the knee were acquired. COMPARISON: [facility], , KNEE 1-2 VIEWS LEFT, 08/21/2008, 11:16. FINDINGS: Bones: No fractures or dislocations. No suspicious bony lesions. Severe tricompartment degenerative arthritis. Soft tissues: Moderate joint effusion. No suspicious soft tissue calcifications. IMPRESSION: Severe degenerative arthritis with associated knee joint effusion. No evidence acute bony abnormality of the left knee. If clinical suspicion and/or symptoms persist, further assessment with repeat plain films, or advanced imaging (e.g., CT, MRI, or bone scan) may be helpful for further assessment. Dictated by: Deon Clemens M.D. on 10/23/2020 at 10:45 Approved by: Deon Clemens M.D. on 10/23/2020 at 10:47
== END ==
PROVIDERS: PCP Student in an Organized Health Care Education/Training Program; Referring Provider Physician Assistant; Visit Provider Physician Assistant
DX: M25.462 Effusion, left knee (principal); M17.12 Unilateral primary osteoarthritis, left knee
CPT/HCPCS: 73562

== ENCOUNTER → 2021-03-28 15:02 | Outpatient (CLI) | payer MEDICARE, OTHER, SELFPAY ==
[2021-03-28 17:28] LABS: BUN Creatinine Ratio 21.2 (6-22); Blood Urea Nitrogen 18 mg/dL (9-20); Calcium 9.5 mg/dL (8.4-10.2); Carbon Dioxide 25 mmol/L (22-32); Chloride 106 mmol/L (98-107); Estimated Glomerular Filt Rate > 60.0 mL/min (>60); Glucose 145 mg/dL (80-110); HEMOLYSIS < 15 (0-50); Sodium 143 mmol/L (137-145)
== END ==
PROVIDERS: PCP Student in an Organized Health Care Education/Training Program; Referring Provider Student in an Organized Health Care Education/Training Program; Visit Provider Student in an Organized Health Care Education/Training Program
DX: I10 Essential (primary) hypertension (principal)
CPT/HCPCS: 36415; 80048

== ENCOUNTER → 2022-03-28 08:22 | Outpatient (CLI) | payer MEDICARE, OTHER, SELFPAY ==
[2022-03-28 09:26] LABS: BUN Creatinine Ratio 22.8 (6-22); Blood Urea Nitrogen 21 mg/dL (9-20); Calcium 9.2 mg/dL (8.4-10.2); Carbon Dioxide 29 mmol/L (22-32); Chloride 105 mmol/L (98-107); Estimated Glomerular Filt Rate > 60 mL/min (>60); Glucose 105 mg/dL (80-110); HEMOLYSIS < 15 (0-50); Potassium 4.9 mmol/L (3.4-5.1); Sodium 142 mmol/L (137-145)
[2022-03-30 20:46] LABS: Hep C Virus Ab w/Reflex Quant NEGATIVE s/c (NEGATIVE)
== END ==
PROVIDERS: PCP Student in an Organized Health Care Education/Training Program; Referring Provider Student in an Organized Health Care Education/Training Program; Visit Provider Student in an Organized Health Care Education/Training Program
DX: Z11.59 Encounter for screening for other viral diseases (principal); I10 Essential (primary) hypertension
CPT/HCPCS: 36415; 80048; 86803

== ENCOUNTER → 2023-03-11 08:30 | Outpatient (CLI) | payer MEDICARE, OTHER, SELFPAY ==
[2023-03-11 09:56] LABS: Alanine Aminotransferase 47 IU/L (<50); Albumin 4.2 g/dL (3.5-5.0); Albumin Globulin Ratio 1.8 (1.0-2.8); Alkaline Phosphatase 75 U/L (38-126); Aspartate Aminotransferase 39 IU/L (17-59); Bilirubin Total 0.3 mg/dL (0.2-1.3); Blood Urea Nitrogen 31 mg/dL (9-20); Calcium 9.8 mg/dL (8.4-10.2); Carbon Dioxide 29 mmol/L (22-32); Chloride 104 mmol/L (98-107); Cholesterol 218 mg/dL (140-199); Estimated Glomerular Filt Rate > 60 mL/min (>60); Globulin 2.4 g/dL (1.7-4.1); Glucose 95 mg/dL (80-110); HDL Cholesterol 79 mg/dL (40-60); HEMOLYSIS < 15 (0-50); LDL Cholesterol Calculated 93 mg/dL (<100); Potassium 4.4 mmol/L (3.4-5.1); Sodium 139 mmol/L (137-145); Total Protein 6.6 g/dL (6.3-8.2); Triglycerides 232 mg/dL (35-150)
== END ==
PROVIDERS: PCP Family Medicine; Referring Provider Family Medicine; Visit Provider Family Medicine
DX: I10 Essential (primary) hypertension (principal); E78.5 Hyperlipidemia, unspecified
CPT/HCPCS: 36415; 80053; 80061

== ENCOUNTER 2023-11-13 20:41 | Emergency (ER) | payer MEDICARE, OTHER, SELFPAY ==
[2023-11-13 20:51] VITALS: BP 148/76; PULSE 92; RESP 15; TEMP 37.4; O2SAT 97; BMI 23.3
--- NOTE | 2023-11-13 21:03 | PC.NURSE ---
Around 8 pm while sitting watching TV Left ear on the helix started to bleed. Noted small puncture (hole) area. Continuous bleeding even after steady pressure. Cleaned up ear then placed nose clamp with pt using direct pressure over cushion.
--- NOTE | 2023-11-13 22:30 | PC.NURSE ---
Checked on patient, notice ear continued to drip blood, placed surgicell with a bandaid over ear, and placed nose clamp on ear to apply pressure. Dr. Mcknight Oked with dressing
--- NOTE | 2023-11-13 22:43 | ED.EAR ---
HPI - Ear Problem General Chief complaint: Ear Stated complaint: lt ear just started bleeding Time Seen by Provider: 11/13/23 21:53 Source: patient, RN notes reviewed and old records reviewed Mode of arrival: Ambulatory Limitations: no limitations History of Present Illness HPI Narrative: 73-year-old male history of hypertension, dyslipidemia no anticoagulants who states that he was sitting watching TV this evening when he started feeling blood dripping from the outer edge of his ear. States he does not recall any trauma or injuries. He does not recall any cuts or lacerations. He does not recall any abnormal growth on his ear. States could not get it to stop at home and presents for evaluation. Patient states no other abnormal bleeding elsewhere his states that he does bruise, weight easily but that has been longstanding. Related Data Home Medications Medication Instructions Recorded Confirmed vitamin E 100 unit capsule 100 unit PO DAILY 09/22/18 04/02/23 Previous Rx's Medication Instructions Recorded carvedilol 6.25 mg tablet 6.25 mg PO BID #180 tabs 03/11/23 fluticasone propionate 50 1 spray intranasal BID #48 grams 03/11/23 mcg/actuation nasal spray,suspension lisinopril 40 mg tablet 40 mg PO DAILY #90 tabs 03/11/23 sildenafil (pulm.hypertension) 20 20 - 100 mg (1 - 5 x 20 mg) PO 03/11/23 mg tablet DAILY PRN sexual activity #60 tabs amlodipine 2.5 mg tablet (Norvasc) 2.5 mg PO DAILY blood pressure #90 04/02/23 tabs rosuvastatin 10 mg tablet (Crestor) 10 mg PO DAILY cholesterol #90 tabs 04/02/23 Allergies Allergy/AdvReac Type Severity Reaction Status Date / Time ibuprofen [IBUPROFEN] Allergy Severe SNEEZING, Verified 04/02/23 15:23 RHINITIS naproxen [NAPROXEN] Allergy Severe WHEEZING Verified 04/02/23 15:23 Penicillins [PENICILLINS] Allergy Unknown unknown Verified 04/02/23 15:23 Review of Systems Review of Systems ROS Unobtainable: All systems reviewed & are unremarkable except as noted in HPI and below Patient History Medical History Encounter for subsequent annual wellness visit in Medicare patient Nasal polyp Erectile dysfunction Essential hypertension GERD (gastroesophageal reflux disease) (06/09/12) Allergic rhinitis, unspecified Dupuytren's contracture Hypertension Hyperlipidemia Surgical History Status post appendectomy History of tonsillectomy Family History Brother Diabetes mellitus Hypertension Brother Diabetes mellitus Hypertension High cholesterol Mini stroke History of kidney cancer Alzheimer's dementia Grandfather Heart attack Mother Diabetes mellitus Heart attack H/O blood clots Congestive heart failure Grandmother Heart attack Sister Age: 85 Kidney tumor Sister Age: 83 Diabetes mellitus Hypertension High cholesterol H/O blood clots Factor V Leiden Mini stroke Bladder cancer Breast cancer Parkinson disease Sister Diabetes mellitus Hypertension High cholesterol High triglycerides Factor V Leiden Acid reflux Brother No problems noted. Brother No problems noted. Brother No problems noted. Father No problems noted. Grandmother No problems noted. Social History household members: spouse Smoking Status: Never smoker Smoking Status: Never smoker Substance Use Type: does not use Exam Narrative Exam Narrative: GEN: well nourished, well appearing male, alert and oriented x 3, patient appears to be in mild distress. HEENT: Atraumatic, pupils are equal round reactive to light, extraocular movements are intact, nares are clear, patient has a an appears to be slight ulceration at the edge of the pinna, patient has Surgicel on top so I can not fully evaluate it there is no other cuts or lacerations appreciated. there is no conjunctival pallor. Throat is clear without any exudates, erythema, tonsillar enlargement or uvular deviation HEART: Regular rate and rhythm without murmur, clicks, rubs. No carotid bruits, pulses are equal in upper and lower extremities LUNGS:Lungs clear to auscultation, no wheezes, rales, crackles, chest moves symmetrically ABD:bowel sounds normal, soft, non-tender, no guarding, rebound, rigidity, no masses noted, no hepatosplenomegaly MSCL: full range of motion, normal gait NEURO:CN 2-12 intact, sensation normal Initial Vital Signs Initial Vital Signs: Vital Signs Temperature 99.3 F 11/13/23 20:51 Pulse Rate 92 H 11/13/23 20:51 Respiratory Rate 15 11/13/23 20:51 Blood Pressure 148/76 H 11/13/23 20:51 Pulse Oximetry 97 11/13/23 20:51 Oxygen Delivery Method Room Air 11/13/23 20:51 Course Orders Ordered: Discontinued Medications Silver Nitrate/Potassium Nitrate (Silver Nitrate Stick) 1 each TOP NOW ONE Stop: 11/13/23 21:54 Last Admin: 11/13/23 22:54 Dose: Not Given Documented By: AB Vital Signs Vital signs: Vital Signs - 8 hr 11/13/23 20:51 Temperature 99.3 F Pulse Rate 92 H Respiratory Rate 15 Blood Pressure 148/76 H Pulse Oximetry 97 Oxygen Delivery Method Room Air Medical Decision Making MDM Narrative Medical decision making narrative: 73-year-old male started having a spot in his ear start bleeding. Discussed with patient he does not recall any trauma or injuries, looks like there might be little bit alteration. Bleeding has since stopped. He has Surgicel applied with a Band-Aid and nasal clamp. Nasal clamp was removed was inspected and does not appear to have any additional bleeding. Discussed return precautions. Also discussed need for follow up with primary care or Dermatology for evaluation as this could be from a skin cancer and needs potentially biopsy. Discharge Plan Departure Patient Disposition: Home Clinical Impression: Bleeding from left ear Activity Restrictions/Additional Instructions: Follow-up with primary care or Dermatology to have evaluation of your ear and make sure you do not need a biopsy to evaluate for skin cancer. Spontaneous bleeding from your skin without any trauma or laceration is always concerning and needs to be evaluated. Please return if you have recurrent bleeding or other new or concerning changes. Prescriptions: No Action carvedilol 6.25 mg tablet 6.25 mg PO BID Qty: 180 3RF Rx Instructions: must administer with a meal/food. fluticasone propionate 50 mcg/actuation spray,suspension 1 spray Intranasal BID Qty: 48 3RF lisinopril 40 mg tablet 40 mg PO DAILY Qty: 90 3RF sildenafil (pulm.hypertension) 20 mg tablet 20 - 100 mg PO DAILY PRN (Reason: sexual activity) Qty: 60 11RF Rx Instructions: Take 30 minutes prior to sexual activity. amlodipine [Norvasc] 2.5 mg tablet 2.5 mg PO DAILY Qty: 90 3RF rosuvastatin [Crestor] 10 mg tablet 10 mg PO DAILY Qty: 90 0RF vitamin E 100 unit Capsule 100 unit PO DAILY Rx Instructions: unknown dose Referrals: Vale Curiel DO [Primary Care Provider] - Stand Alone Forms: Patient Portal/API
== END 2023-11-13 22:57 | disposition home or self-care (01) ==
PROVIDERS: Emergency Provider Emergency Medicine; PCP Family Medicine
DX: H92.22 Otorrhagia, left ear (principal)
CPT/HCPCS: 99281; 99282

== ENCOUNTER → 2024-03-19 08:54 | Outpatient (CLI) | payer MEDICARE, OTHER, SELFPAY ==
--- NOTE | 2024-03-19 09:58 | EKG_ITS ---
[place] [id number] [place] [id number] Test Date: 2024-03-19 Pat Name: [place] Jr Department: [facility] Room: Gender: Male Authorization Manager: CYN : 1950 Requested By: Order Number: [id number] Reading MD: Stanton Rothman MD Measurements Intervals [place] Rate: 61 P: 56 NH: 168 QRS: 24 QRSD: 84 T: 162 QT: 370 QTc: 372 Interpretive Statements Normal sinus rhythm T wave abnormality, consider lateral ischemia NO PRIOR TRACING Electronically Signed On 03-20-2024 11:39:02 PST by Stanton Rothman MD
[2024-03-19 10:14] LABS: Add Manual Diff / Slide Review NO; Basophils Absolute Auto 0 /uL (0-100); Basophils Percent Auto 0.6 % (0-2); Eosinophils Absolute Auto 100 /uL (0-450); Eosinophils Percent Auto 2.7 % (2-4); Hematocrit 40.9 % (41-53); Hemoglobin 14.5 g/dL (13.5-17.5); Lymphocytes Absolute Auto 1300 /uL (1100-4500); Mean Corpuscular HGB Conc 35.4 % (30-36); Mean Corpuscular Hemoglobin 35.6 PG (26-34); Mean Corpuscular Volume 100.7 fL (80-100); Monocytes Absolute Auto 300 /uL (0-900); Monocytes Percent Auto 7.3 % (3-14); Neutrophils Absolute Auto 2700 /uL (1500-7000); Neutrophils Percent Auto 61.4 % (50-75); Platelet Count 222 X10^3/uL (150-400); Red Blood Cell Count 4.06 X10^6/uL (4.5-5.9); Red Cell Distribution Width 12.5 % (11.6-14.8); White Blood Cell Count 4.5 X10^3/uL (4.5-11.0)
[2024-03-19 10:30] LABS: Hemoglobin A1C% w Est Avg Glu 4.9 % (4.0-6.0)
[2024-03-19 10:33] LABS: BUN Creatinine Ratio 22.5 (6-22); Blood Urea Nitrogen 20 mg/dL (9-20); Calcium 9.7 mg/dL (8.4-10.2); Carbon Dioxide 26 mmol/L (22-32); Chloride 106 mmol/L (98-107); Estimated Glomerular Filt Rate > 60 mL/min (>60); Glucose 119 mg/dL (80-110); HEMOLYSIS < 15 (0-50); Potassium 4.4 mmol/L (3.4-5.1); Sodium 138 mmol/L (137-145)
[2024-03-19 12:11] LABS: Appearance Urine UA CLEAR; Bilirubin Urine UA NEGATIVE (NEGATIVE); Color Urine UA YELLOW; Glucose Urine UA NEGATIVE (Negative); Ketones Urine UA NEGATIVE (NEGATIVE); Leukocyte Esterase Urine UA NEGATIVE (NEGATIVE); Nitrite Urine UA NEGATIVE (Negative); Occult Blood Urine UA NEGATIVE (Negative); Protein Urine UA NEGATIVE (Negative); Specific Gravity Urine UA >=1.030 (1.000-1.035); Urobilinogen Urine UA 0.2 E.U./dL (0.2); pH Urine UA 5.5 (4.5-8.0)
[2024-03-19 12:33] LABS: Urine Volume 10mL (spun)
[2024-03-19 12:34] LABS: Bacteria Urine None Seen; Culture Indicated Urine Cult Not Indicated; Mucus Urine 1+ (Negative); RBC Urine None Seen (0-5/HPF); Squamous Epithelial Cell Urine None Seen (0-5/HPF); WBC Urine 1-5/HPF (0-5/HPF)
== END ==
PROVIDERS: PCP Family Medicine; Referring Provider Orthopaedic Surgery; Visit Provider Orthopaedic Surgery
DX: Z01.818 Encounter for other preprocedural examination (principal); R73.9 Hyperglycemia, unspecified; Z01.812 Encounter for preprocedural laboratory examination; N39.0 Urinary tract infection, site not specified
CPT/HCPCS: 36415; 80048; 81001; 83036; 85025; 93005

== ENCOUNTER → 2024-03-30 09:12 | Outpatient (CLI) | payer MEDICARE, OTHER, SELFPAY ==
[2024-03-30 10:54] LABS: Alanine Aminotransferase 39 IU/L (<50); Albumin 4.3 g/dL (3.5-5.0); Alkaline Phosphatase 67 U/L (38-126); Aspartate Aminotransferase 37 IU/L (17-59); Bilirubin Total 0.5 mg/dL (0.2-1.3); Bilirubin Unconjugated 0.3 mg/dL (0.0-1.1); Cholesterol 216 mg/dL (140-199); Globulin 2.1 g/dL (1.7-4.1); HDL Cholesterol 86 mg/dL (40-60); HEMOLYSIS < 15 (0-50); LDL Cholesterol Calculated 84 mg/dL (<100); Total Protein 6.4 g/dL (6.3-8.2); Triglycerides 228 mg/dL (35-150)
== END ==
PROVIDERS: PCP Family Medicine; Referring Provider Family Medicine; Visit Provider Family Medicine
DX: Z00.00 Encounter for general adult medical examination without abnormal findings (principal); I10 Essential (primary) hypertension; E78.5 Hyperlipidemia, unspecified
CPT/HCPCS: 36415; 80061; 80076

== ENCOUNTER → 2024-04-22 07:42 | Outpatient (CLI) | payer MEDICARE, OTHER, SELFPAY ==
[2024-04-23 10:36] LABS: Fecal Immunochemical Test Negative (Negative)
== END ==
PROVIDERS: PCP Family Medicine; Referring Provider Family Medicine; Visit Provider Family Medicine
DX: Z00.00 Encounter for general adult medical examination without abnormal findings (principal); I10 Essential (primary) hypertension; E78.5 Hyperlipidemia, unspecified
CPT/HCPCS: 82274

== ENCOUNTER → 2024-06-12 12:40 | Outpatient (CLI) | payer MEDICARE, OTHER, SELFPAY ==
--- NOTE | 2024-06-12 12:42 | DI.US.S_ITS ---
PROCEDURE: US PERIPH VENOUS LOW EXTREM LT INDICATIONS: POST LEFT TKA TECHNIQUE: Real-time imaging, as well as color and pulse Doppler interrogation, were performed of the lower extremity deep veins from the inguinal ligament to the popliteal fossa, with documentation of the visualized calf veins. COMPARISON: None. FINDINGS: The common femoral, femoral, popliteal, and the visualized calf veins are normally compressible, and free of intraluminal thrombus. Color and pulse Doppler demonstrate normal phasic intraluminal flow. There is normal augmentation response to distal compression maneuver. Complex fluid collection in the popliteal fossa measuring 3.9 x 4.8 x 1.2 cm. IMPRESSION: No findings of lower extremity deep venous thrombosis. Newsome cyst. Dictated by: Dolly Lopez M.D. on 06/12/2024 at 13:22 Approved by: Dolly Lopez M.D. on 06/12/2024 at 13:28
== END ==
PROVIDERS: PCP Family Medicine; Referring Provider Orthopaedic Surgery; Visit Provider Orthopaedic Surgery
DX: M17.0 Bilateral primary osteoarthritis of knee (principal); M71.22 Synovial cyst of popliteal space [Baker], left knee; Z96.652 Presence of left artificial knee joint
CPT/HCPCS: 93971

== ENCOUNTER → 2025-05-04 11:27 | Outpatient (CLI) | payer MEDICARE, OTHER, SELFPAY | PROVIDERS: PCP Family Medicine; Referring Provider Nurse Practitioner Family; Visit Provider Nurse Practitioner Family | DX: R21 Rash and other nonspecific skin eruption (principal) | CPT/HCPCS: 87070; 87075; 87205 ==